=== PATIENT | male | born 1940 | race Caucasian/White ===

== ENCOUNTER → 2016-11-16 | Outpatient (CLI) | payer OTHER ==
[~2016-11-16] MED LIST: ASPI81TA28 PO; CLON0.5T3 PO; HYDR-5688 PO; LISI-461 PO; MULT-506 PO
[2016-11-16 13:51] LABS: BASO % 0.5 %; BASO ABS # 0.03 K/uL (0-0.2); COMPLETE YES; EOS % 6.2 %; HEMATOCRIT 45.5 % (42-52); IG% 0.7 %; LYMPH % 38.6 %; LYMPH ABS # 2.23 K/uL (1.2-3.4); MEAN CELL VOLUME 92.5 fL (80-100); MEAN CORPUSCULAR HEMOGLOBIN 31.3 pg (25-34); MEAN CORPUSCULAR HGB CONC 33.8 g/dl (32-36); MEAN PLATELET VOLUME 11.2 fL (7.4-10.4); MONO % 8.7 %; NEUT % 45.3 %; PLATELET COUNT 253 K/uL (130-400); RED BLOOD COUNT 4.92 M/uL (4.7-6.1); WHITE BLOOD COUNT 5.77 K/uL (4.8-10.8)
[2016-11-16 13:53] LABS: BLOOD UREA NITROGEN 17 mg/dl (7-18); BUN/CREATININE RATIO 14.3 (10-20); CARBON DIOXIDE 31 mmol/L (21-32); CHLORIDE 105 mmol/L (98-107); GLUCOSE 91 mg/dl (70-99); POTASSIUM 4.7 mmol/L (3.5-5.1); SODIUM 141 mmol/L (136-145)
[2016-11-16 14:00] LABS: CALCIUM 9.3 mg/dl (8.5-10.1)
== END | disposition home or self-care (01) ==
LOC: C.LABBC 11:00
PROVIDERS: ATTEND Surgery
DX: Z01.812 Encounter for preprocedural laboratory examination (principal); K42.9 Umbilical hernia without obstruction or gangrene

== ENCOUNTER → 2016-11-27 | Day surgery (SDC) | payer OTHER ==
[2016-11-20 11:49] VITALS: Ht 168.9 cm; Wt 68.2 kg
[~2016-11-27] VITALS: Ht 168.9 cm; Wt 68.2 kg
[~2016-11-27] MED LIST changes: +BUPIVACAINE/EPINEPHRINE 0.25% 1:200,000 30 ML VIAL ONE; +BUPIVACAINE/EPINEPHRINE 0.5% MPF 1:200,000 30 ML VIAL ONE; +CLINDAMYCIN PHOS 150 MG/ML 2 ML VIAL IV SCH; +DEXAMETHASONE SOD INJ 4 MG/ML VIAL ONE; +FENTANYL CITRATE INJ 50 MCG/1 ML 2 ML VIAL IV PRN; +FENTANYL CITRATE INJ 50 MCG/1 ML 2 ML VIAL ONE; +HYDROCODONE/ACETAMOPHEN 5/325MG TAB PO PRN; +LACTATED RINGER'S 1000ML 1,000 ML IV PRN; +LACTATED RINGER'S 1000ML 1,000 ML IV SCH; +LIDOCAINE HCL 2% 2 ML VIAL (20MG/ML) ONE; +MIDAZOLAM HCL 1 MG/ML 2ML VIAL ONE; +ONDANSETRON INJ 2 MG/ML 2 ML VIAL IV PRN; +ONDANSETRON INJ 2 MG/ML 2 ML VIAL ONE; +PROPOFOL IV EMULSION 10 MG/ML 20 ML VIAL IV ONE; +SODIUM CHLORIDE 0.9% 1000ML 1,000 ML IV SCH
--- NOTE | 2016-11-27 07:56 | History & Physical Bridge Note ---
H&P Re-Evaluation Bridge Note: I have examined the patient, reviewed the History & Physical and in the interval since the performance of the History & Physical I have noted the following changes of clinical significance: No changes noted
--- NOTE | 2016-11-27 07:58 | [facility] Operative Report ---
Operative Report Operative Date November 27, 2016. Pre-Operative Diagnosis umbilical hernia Post-Operative Diagnosis umbilical hernia with omental incarceration. Procedure(s) Performed open umbilical hernia repair Surgeon luis Industrial Education Teacher Surgeon(s) camille Zambrano Findings 1 cm umbilical hernia with fat incarceration. Anesthesia LMA Complication(s) None Disposition Recovery Room / PACU I attest to the content of the Intraoperative Record and any orders documented therein. Any exceptions are noted below.
--- NOTE | 2016-11-27 07:59 | Discharge Instructions ---
Discharge Instructions Date of Service November 27, 2016. Admission Reason for Admission: Umbilical Hernia Discharge Discharge Diagnosis / Problem: Umbilical Hernia Discharge Goals Goal(s): Decrease discomfort, Improve function Activity Recommendations Activity Limitations: as noted below Lifting Limitations: no more than 10 pounds Exercise/Sports Limitations: until after follow-up appointment May Resume Sexual Activity: after follow-up appointment Shower/Bathe: tomorrow . Instructions / Follow-Up Instructions / Follow-Up Please follow-up with Dr. Stockton in the office in 1-2 weeks. Please call the office at [phone] with any questions or concerns. Current Hospital Diet Patient's current hospital diet: Discharge Diet Recommended Diet: Regular Diet Pending Studies Studies pending at discharge: no Medical Emergencies . Who to Call and When: Medical Emergencies: If at any time you feel your situation is an emergency, please call 911 immediately. . Non-Emergent Contact Non-Emergency issues call your: Primary Care Provider, Surgeon Call Non-Emergent contact if: temperature is above 101.5, your pain is not controlled, wound has increased drainage, wound has increased redness . "Provider Documentation" section prepared by iDonne Zambrano. . VTE Core Measure Inpt VTE Proph given/why not?: SCD's [place] Drug Monitoring Program Search Results: patient reviewed within database, no issues identified
--- NOTE | 2016-11-27 08:58 | OPERATIVE REPORT ---
DATE OF OPERATION: 11/27/2016 PREOPERATIVE DIAGNOSIS: Umbilical hernia. POSTOPERATIVE DIAGNOSIS: One centimeter umbilical hernia with incarcerated fat. PROCEDURE: Open umbilical hernia repair. SURGEON: Dr. Stockton. MERCHANDISE WORKER: Dionne Zambrano PA-C. ESTIMATED BLOOD LOSS: Approximately 5 mL. COMPLICATIONS: No immediate. ANESTHESIA: Laryngeal mask airway. OPERATIVE NOTE: After informed consent was obtained, the patient taken to the operating suite, placed in supine position. After successful placement of laryngeal mask airway the abdomen was shaved and sterilely prepped and draped in usual fashion. An infraumbilical incision with a 15 blade scalpel was made and electrocautery used to carry this down through the soft tissue. We then took a Cece clamp and came around above the umbilicus. Electrocautery was then used to detach the umbilicus from underlying fascia. This left incarcerated fat within the hernia. There was a hard infarcted piece of fat which we were able to use electrocautery to excise. Once we took this down we were then able to dunk the rest of the omental fat back down into the abdominal cavity leaving skeletonized fascial edges. It was only about a cm and thus I opted not to use mesh. I used 0 Ethibond in an interrupted fashion to primarily close the defect. Thorough irrigation was then performed. The umbilical stalk was reattached to the fascia using 0 Vicryl. Soft tissue was closed using 3-0 Vicryl and skin closed using 4-0 Monocryl. Marcaine was injected around the area for postoperative analgesia and skin glue used as a dressing. The patient was awakened, extubated, and transferred to recovery in stable condition. I attest to the content of the Intraoperative Record and any orders documented therein. Any exceptio ns are noted below.
--- NOTE | 2016-11-27 09:36 | Anesthesia Progress Nt - [facility] ---
Anesthesia Post Op Note Date & Time November 27, 2016 at 09:35 Vital Signs Pain Intensity: 3 Vital Signs Past 12 Hours Date Time Temp Pulse Resp B/P Pulse Ox O2 Delivery O2 Flow Rate FiO2 11/27/16 09:25 36.4 63 11 11/27/16 09:25 63 11 142/74 94 11/27/16 09:20 64 15 11/27/16 09:20 63 15 124/78 95 11/27/16 09:20 95 Room Air 11/27/16 09:15 62 0 11/27/16 09:15 62 0 134/77 98 11/27/16 09:10 66 16 125/78 97 11/27/16 09:10 65 16 11/27/16 09:05 67 18 11/27/16 09:05 68 18 122/79 97 11/27/16 09:00 16 11/27/16 09:00 73 16 140/79 11/27/16 08:55 65 15 11/27/16 08:55 65 15 126/65 97 11/27/16 08:54 123/67 11/27/16 08:51 36.1 61 16 125/67 96 Diffusion Mask 6 11/27/16 07:09 36.5 66 18 151/75 95 Room Air Notes Mental Status: alert / awake / arousable, participated in evaluation Pt Amnestic to Procedure: Yes Nausea / Vomiting: adequately controlled Pain: adequately controlled Airway Patency, RR, SpO2: stable & adequate BP & HR: stable & adequate Hydration State: stable & adequate Anesthetic Complications: no major complications apparent Pt doing well.
[2016-11-27 10:23] VITALS: BP 145/80; PULSE 65; TEMP 36.5; O2SAT 97
== END | disposition home or self-care (01) ==
LOC: X.SURG 06:28
PROVIDERS: ATTEND Surgery
DX: K42.0 Umbilical hernia with obstruction, without gangrene (principal); I10 Essential (primary) hypertension; F41.9 Anxiety disorder, unspecified; Z98.42 Cataract extraction status, left eye; Z88.0 Allergy status to penicillin; Z98.41 Cataract extraction status, right eye; Z98.890 Other specified postprocedural states; Z79.82 Long term (current) use of aspirin

== ENCOUNTER → 2017-06-28 | Day surgery (SDC) | payer OTHER ==
[2017-06-11 09:27] VITALS: Ht 170.2 cm; Wt 66.4 kg
[~2017-06-28] VITALS: Ht 170.2 cm; Wt 66.4 kg
[~2017-06-28] MED LIST changes: -BUPIVACAINE/EPINEPHRINE 0.25% 1:200,000 30 ML VIAL ONE; -BUPIVACAINE/EPINEPHRINE 0.5% MPF 1:200,000 30 ML VIAL ONE; -CLINDAMYCIN PHOS 150 MG/ML 2 ML VIAL IV SCH; -FENTANYL CITRATE INJ 50 MCG/1 ML 2 ML VIAL IV PRN; -FENTANYL CITRATE INJ 50 MCG/1 ML 2 ML VIAL ONE; -HYDR-5688 PO; -HYDROCODONE/ACETAMOPHEN 5/325MG TAB PO PRN; -LACTATED RINGER'S 1000ML 1,000 ML IV PRN; -LACTATED RINGER'S 1000ML 1,000 ML IV SCH; +LIDOCAINE HCL 1% MPF 5 ML VIAL ONE; -LIDOCAINE HCL 2% 2 ML VIAL (20MG/ML) ONE; -MIDAZOLAM HCL 1 MG/ML 2ML VIAL ONE; -ONDANSETRON INJ 2 MG/ML 2 ML VIAL IV PRN; -ONDANSETRON INJ 2 MG/ML 2 ML VIAL ONE; -PROPOFOL IV EMULSION 10 MG/ML 20 ML VIAL IV ONE; -SODIUM CHLORIDE 0.9% 1000ML 1,000 ML IV SCH
[2017-06-28 07:29] VITALS: TEMP 36.5
--- NOTE | 2017-06-28 07:31 | [facility] Operative Report ---
Operative Report Operative Date Jun 28, 2017. Pre-Operative Diagnosis Spinal Stenosis Post-Operative Diagnosis same Procedure(s) Performed L4-5 Epidural [address] Injection Sur[address] Eng Durable Medical Equipment Technician Surgeon(s) none Estimated Blood Loss 0 ml Findings stenosis Specimens none Complication(s) None Disposition Recovery Room / PACU I attest to the content of the Intraoperative Record and any orders documented therein. Any exceptions are noted below.
--- NOTE | 2017-06-28 07:33 | Discharge Instructions-[facility]urgCtr ---
Discharge Instructions Date of Service Jun 28, 2017. Visit Reason for Visit: Spinal Stenosis Discharge Discharge Diagnosis / Problem: same Discharge Goals Goal(s): Improve function Activity Recommendations Activity Limitations: resume your previous activity Lifting Limitations: gradually increase as tolerated Shower/Bathe: no limitations Driving or Machine Use: no limitations Anesthesia . Post Anesthesia Instructions: If you have had General Anesthesia or IV Sedation: * Do not drive today. * Resume driving when surgeon permits. * Do not make important decisions or sign legal documents today. * Call surgeon for: 1. Temperature elevations greater than 101 degrees F. 2. Uncontrollable pain. 3. Excessive bleeding. 4. Persistent nausea and vomiting. 5. Medication intolerance (nausea, vomiting or rash). * For nausea and vomiting use only clear liquids such as: tea, soda, bouillon until nausea subsides, then gradually increase diet as tolerated. * If you have any concerns or questions, call your surgeon's office. If physician is unavailable and it is an emergency, call 911 or go to the nearest emergency room. . Diet Recommendations Home Diet: no limitations Procedures Procedures Performed: L4-5 Epidural Steroid Injection Pending Studies Studies pending at discharge: no Medical Emergencies . Who to Call and When: Medical Emergencies: If at any time you feel your situation is an emergency, please call 911 immediately. . Non-Emergent Contact Non-Emergency issues call your: Surgeon . . "Provider Documentation" section prepared by Vance Eng. .
[2017-06-28 07:44] VITALS: BP 166/81; PULSE 64; O2SAT 96
--- NOTE | 2017-06-28 08:44 | OPERATIVE REPORT ---
DATE OF OPERATION: 06/28/2017 PREOPERATIVE DIAGNOSIS: Stenosis, lumbar. POSTOPERATIVE DIAGNOSIS: Stenosis, lumbar. PROCEDURE PERFORMED: Include epidural steroid injection, 4-5 lumbar. SURGEON: Vance Eng DO. DESCRIPTION OF PROCEDURE: The patient was taken to the minor procedure room and placed prone, prepped and draped sterile. A 22-gauge spinal Tuohy needle advanced to the epidural space at L4-L5. A 2 mL of dexamethasone injected without incident. I used an air acceptance technique. No complications. Discharge home stable. I attest to the content of the Intraoperative Record and any orders documented therein. Any exception s are noted below.
== END | disposition home or self-care (01) ==
LOC: X.SURG 06:26
PROVIDERS: ATTEND Orthopaedic Surgery Orthopaedic Surgery of the Spine
DX: M48.061 Spinal stenosis, lumbar region without neurogenic claudication (principal); I10 Essential (primary) hypertension; F41.9 Anxiety disorder, unspecified; Z79.82 Long term (current) use of aspirin; Z79.899 Other long term (current) drug therapy

== ENCOUNTER → 2017-07-23 | Outpatient (CLI) | payer OTHER ==
[~2017-07-23] MED LIST changes: -CLON0.5T3 PO; -DEXAMETHASONE SOD INJ 4 MG/ML VIAL ONE; +KLN/5 PO; -LIDOCAINE HCL 1% MPF 5 ML VIAL ONE
[2017-07-23 11:20] LABS: BLOOD UREA NITROGEN 13 mg/dl (7-18); CALCIUM 8.9 mg/dl (8.5-10.1); CARBON DIOXIDE 33 mmol/L (21-32); CREATININE 1.27 mg/dl (0.60-1.40); GLUCOSE 95 mg/dl (70-99); SODIUM 140 mmol/L (136-145)
[2017-07-23 11:24] LABS: CHOLESTEROL 168 mg/dl (0-200); LDL CHOLESTEROL CALCULATED 86 mg/dl
== END | disposition home or self-care (01) ==
LOC: C.LABBC 09:07
PROVIDERS: ATTEND Family Medicine
DX: I10 Essential (primary) hypertension (principal)

== ENCOUNTER 2020-10-14 21:42 | Observation (INO) ==
--- NOTE | 2020-10-14 22:05 | Emergency Department Note ---
History of Present Illness General Chief complaint: Shoulder Pain Stated complaint: CHEST PAIN Time Seen by Provider: 10/14/20 21:49 Source: patient and family ( who is at the bedside) Mode of arrival: ambulatory Limitations: no limitations History of Present Illness Maximum Pain Intensity: 7 This patient comes in after having pain just medial to his left shoulder blade. He was at a computer and a sudden sharp pain he called 911 and when they arrived he declined transport he said that they most likely felt it was musculoskeletal as it hurts when he moves and he has no other symptoms but they recommended he come here so he came in by private vehicle. He did take a baby aspirin this evening. 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 He has had no chest pain or shortness of breath. Was mildly pleuritic initially. No nausea or vomiting or numbness or weakness. no lightheadedness or dizziness. no diaphoresis. No blood or melena in his stool. no abdominal pain. Home Medications Medication Instructions Recorded Confirmed Type aspirin 81 mg tablet 81 mg PO DAILY #1 tab 03/17/19 10/14/20 History hydroxyzine pamoate 25 mg capsule 25 mg PO TID PRN cap 03/17/19 10/14/20 History loratadine 10 mg capsule 10 mg PO DAILY cap 03/17/19 10/14/20 History multivitamin 1 tab PO DAILY 03/19/19 10/14/20 History lisinopril 10 mg tablet 10 mg PO DAILY #90 tab 06/10/20 10/14/20 Rx clonazepam 0.5 mg PO HS 10/14/20 10/14/20 History Allergies Allergy/AdvReac Type Severity Reaction Status Date / Time Penicillins Allergy Intermediate BODY RASH Verified 10/14/20 23:02 Past Med/Surg History Medical History Psychological disorder Surgical History History of cataract surgery History of repair of rotator cuff History of umbilical hernia repair Family History Father Cardiac disorder Myocardial infarction Hypertension Heart disease Grandmother (Paternal) No problems noted. Mother Emphysema/COPD Daughter Asthma Denies family history of Ovarian cancer Prostate cancer Breast cancer Colorectal cancer Social History Smoking Status: Never smoker Second Hand Exposure: Yes; Hx Alcohol Use: No Hx Substance Use: No Preferred Language: Hebrew Communication Ability: Effective Visual Impairment: No Limitations Hearing Ability: Normal marital status: Current Living Situation: Spouse current occupational status: retired current occupation: [place] [employer] Feels Safe at Home: Yes Childhood Exposure to Second-Hand Smoke: Yes Dental Care, Regularly: Yes Physical Activity Frequency: Other Physical Activity Frequency Comment: infrequent exercise Seatbelt Use: always Sunscreen Use: No Do you think of yourself as: straight/heterosexual Immunizations: PAst Medical historyhypertension stable on lisinopril. He does take clonazepam for anxiety and has not been feeling anxious lately that was related to his previous job and has been retired for 16 years now. Denies diabetes or hypercholesteremia he did have a stress test in the past but it has been many years Family historyFather had MS at age 75 Social history- He is and lives locally with his Review of Systems A total of 10 systems reviewed and were otherwise negative Physical Exam Vital Signs Vital Signs - 24 hr 10/14/20 21:45 10/14/20 22:18 10/14/20 22:21 Temperature 36.5 C Temperature Source Temporal Artery Scan Pulse Rate 72 83 Pulse Rate from SpO2 Sensor Pulse Rhythm Regular Pulse Strength Normal Respiratory Rate 16 22 Respiratory Effort / Characteristics Non-Labored Respiratory Depth Normal Respiratory Pattern Regular Blood Pressure 193/80 H 153/77 H Blood Pressure Mean 117 102 Blood Pressure Position Sitting Pulse Oximetry 98 94 100 Oxygen Delivery Method Room Air Room Air Sepsis Recent Fever Within 48 Hours No Sepsis New/Unexplained Change in Mental Status N/A Sepsis Action Taken by Nursing No Action Required 10/14/20 22:31 10/14/20 23:00 10/14/20 23:30 Temperature Temperature Source Pulse Rate 77 71 72 Pulse Rate from SpO2 Sensor 63 71 72 Pulse Rhythm Pulse Strength Respiratory Rate 19 13 17 Respiratory Effort / Characteristics Respiratory Depth Respiratory Pattern Blood Pressure 126/62 137/74 174/85 H Blood Pressure Mean 83 95 114 Blood Pressure Position Pulse Oximetry 94 93 95 Oxygen Delivery Method Room Air Room Air Room Air Sepsis Recent Fever Within 48 Hours Sepsis New/Unexplained Change in Mental Status Sepsis Action Taken by Nursing General: Well developed well nourished in no acute distress, breathing comfortably on room air. Normal speech HEENT: Normal cephalic atraumatic. Pupils are equal round and reactive to light. Extraocular movements are intact. Oropharynx is pink with moist mucous membranes. No swelling of the mouth lips or tongue. Neck: Supple with a midline trachea. No meningeal signs or stiffness, no JVD or bruits. No Stridor. Chest: Clear to auscultation bilaterally. No wheezes or rhonchi. No increased work of breathing. Heart: Regular rate and rhythm without murmurs or gallops. Abdomen: Soft nontender, nondistended without rebound guarding or rigidity. Extremities: No cyanosis clubbing or edema. No calf tenderness or assymetry Spine/Back. Non tender to palpation. No CVA tenderness Skin: Good turgor without rashes. Neurologic exam: Cranial nerves two through 12 are intact. Motor and sensation are intact and symmetrical throughout. Course Administered Medications Discontinued Medications Aspirin (Aspirin 81 Mg Chew) 324 mg PO NOW STA Stop: 10/14/20 23:24 Last Admin: 10/14/20 23:36 Dose: 324 mg Documented by: [id number] Medical Decision Making Differential Diagnosis Musculoskeletal, coronary artery disease, electrolyte or metabolic abnormality, PE, pneumothorax, aortic disease Medical Records Attestation: I reviewed the patient's medical records. Home Medications Current Medication List: was personally reviewed by me Laboratory Data Attestation: I reviewed the patient's lab results. Result diagrams: 10/14/20 22:20 10/14/20 22:20 Lab Results 10/14/20 10/14/20 10/14/20 Range/Units 22:20 22:20 22:20 WBC 7.94 (4.8-10.8) K/uL RBC 4.73 (4.7-6.1) M/uL Hgb 14.8 (14.0-18.0) g/dL Hct 43.3 (42-52) % MCV 91.5 (80-100) fL MCH 31.3 (25-34) pg MCHC 34.2 (32-36) g/dL RDW Std Deviation 41.7 (36.4-46.3) fL RDW Coeff of Shima 12.4 (11.5-14.5) % Plt Count 248 (130-400) K/uL MPV 11.1 H (7.4-10.4) fL Immature Gran % (Auto) 0.5 % Neut % (Auto) 57.1 % Lymph % (Auto) 29.3 % [place] % (Auto) 8.7 % Eos % (Auto) 4.0 % Baso % (Auto) 0.4 % Neut # (Auto) 4.53 (1.4-6.5) K/uL Lymph # (Auto) 2.33 (1.2-3.4) K/uL [place] # (Auto) 0.69 H (0.11-0.59) K/uL Eos # (Auto) 0.32 (0-0.5) K/uL Baso # (Auto) 0.03 (0-0.2) K/uL Immature Gran # (Auto) 0.04 H (0.00-0.02) K/uL D-Dimer 350 (0-500) ug/L FEU Sodium 138 (136-145) mmol/L Potassium 3.9 (3.5-5.1) mmol/L Chloride 105 (98-107) mmol/L Carbon Dioxide 30 (21-32) mmol/L Anion Gap 3.0 (3-11) BUN 20 H (7-18) mg/dl Creatinine 1.37 (0.6-1.4) mg/dl Est Cr Clr Drug Dosing 38.7 ml/min Est GFR ( Amer) 56.9 Est GFR (Non-Af Amer) 49.1 BUN/Creatinine Ratio 14.7 (10-20) Glucose 120 H (70-99) mg/dl Calcium 9.2 (8.5-10.1) mg/dl Total Bilirubin 0.2 (0.2-1) mg/dl AST 21 (15-37) U/L ALT 26 (12-78) U/L Alkaline Phosphatase 57 (45-117) U/L Troponin I < 0.015 (0-0.045) ng/ml Total Protein 7.3 (6.4-8.2) gm/dl Albumin 3.6 (3.4-5.0) gm/dl Globulin 3.7 (2.5-4.0) gm/dl Albumin/Globulin Ratio 1.0 (0.9-2) Lipase 241 (73-393) U/L COVID-19 Eval Order 10/14/20 Range/Units 23:32 WBC (4.8-10.8) K/uL RBC (4.7-6.1) M/uL Hgb (14.0-18.0) g/dL Hct (42-52) % MCV (80-100) fL MCH (25-34) pg MCHC (32-36) g/dL RDW Std Deviation (36.4-46.3) fL RDW Coeff of Shima (11.5-14.5) % Plt Count (130-400) K/uL MPV (7.4-10.4) fL Immature Gran % (Auto) % Neut % (Auto) % Lymph % (Auto) % [place] % (Auto) % Eos % (Auto) % Baso % (Auto) % Neut # (Auto) (1.4-6.5) K/uL Lymph # (Auto) (1.2-3.4) K/uL [place] # (Auto) (0.11-0.59) K/uL Eos # (Auto) (0-0.5) K/uL Baso # (Auto) (0-0.2) K/uL Immature Gran # (Auto) (0.00-0.02) K/uL D-Dimer (0-500) ug/L FEU Sodium (136-145) mmol/L Potassium (3.5-5.1) mmol/L Chloride (98-107) mmol/L Carbon Dioxide (21-32) mmol/L Anion Gap (3-11) BUN (7-18) mg/dl Creatinine (0.6-1.4) mg/dl Est Cr Clr Drug Dosing ml/min Est GFR ( Amer) Est GFR (Non-Af Amer) BUN/Creatinine Ratio (10-20) Glucose (70-99) mg/dl Calcium (8.5-10.1) mg/dl Total Bilirubin (0.2-1) mg/dl AST (15-37) U/L ALT (12-78) U/L Alkaline Phosphatase (45-117) U/L Troponin I (0-0.045) ng/ml Total Protein (6.4-8.2) gm/dl Albumin (3.4-5.0) gm/dl Globulin (2.5-4.0) gm/dl Albumin/Globulin Ratio (0.9-2) Lipase (73-393) U/L COVID-19 Eval Order [facility]FluRsv at [facility] Imaging Data Attestation: I personally reviewed and interpreted this imaging study as follows: My Impression: Chest x-rayno acute infiltrate, failure, pneumothorax seen Radiologist's Impression: XR chest 1V portable HISTORY: 80 years-old Male Chest Pain . Atypical chest pain COMPARISON: Chest radiograph 10/25/2014 TECHNIQUE: Portable AP view of the chest FINDINGS: Cardiomediastinal and hilar silhouettes are within normal limits. No pneumothorax, pleural effusion, airspace consolidation or overt pulmonary edema. Bones of the chest appear grossly intact. IMPRESSION: No acute process. ECG Data Attestation: I personally reviewed and interpreted this ECG as follows: Indication: + back/shoulder pain Rate (beats per minute): 74 Rhythm: + normal sinus ECG Intervals/blocks: + Normal QRS, + Normal QT and + Normal [place] ECG [place]: + Normal ECG ST segments: + Normal ST segments ECG Findings: + PVCs (Occasional) Comparison ECG Date: from (07/30/14) Change: the following changes noted (PVC occasionally is now present) Additional Comments: EKG #2- Normal sinus rhytym at 72 without ischemic changes. No change compared to EKG#1. MDM Narrative This patient comes in as described above he had shoulder pain with reproducible along the scapula. There is no rash or nothing to suggest shingles. He is 80 and thus I did a full cardiac work-up including chest x-ray, EKG, troponin, and D-dimer. He was reassessed frequently. EKG does not suggest acute coronary syndrome or arrhythmia. Troponin is negative. Chest x-ray is unremarkable, there is nothing to suggest congestive heart failure, pneumonia or pneumothorax. D-dimer is negative and a low pretest probability makes PE highly unlikely. Initial EKG shows no ischemic changes. EKG #2 shows no change compared EKG #1. Troponin is negative. There is no acute electrolyte or metabolic abnormalities. Although his symptoms are somewhat atypical,he does have cardiac risk factors, namely age family history and hypertension. I did discuss case with Dr. Godoy who will observe him for further cardiac evaluation. Continuous cardiac monitoring: Order was placed in the EMR for continuous cardiac monitoring and shows a normal sinus rhythm with a pulse of 70 Impression & Plan Chest pain, Acute shoulder pain, Anxiety, HTN (hypertension), FH: CAD (coronary artery disease) Discharge Plan Visit Data Chief Complaint: Shoulder Pain Stated Complaint: CHEST PAIN ED Provider: Donato Turcios Discharge Problem: Chest pain, Acute shoulder pain, Anxiety, HTN (hypertension), FH: CAD (coronary artery disease) Forms Stand Alone Forms: [employer] Prescriptions Prescriptions: No Action lisinopril 10 mg tablet 10 mg PO DAILY Qty: 90 RF: 1 aspirin 81 mg tablet 81 mg PO DAILY Qty: 1 RF: 0 loratadine 10 mg capsule 10 mg PO DAILY RF: 0 hydroxyzine pamoate 25 mg capsule 25 mg PO TID PRN (Reason: anxiety) RF: 0 multivitamin [Daily Multi-Vitamin] tablet 1 tab PO DAILY RF: 0 clonazepam 0.5 mg tablet 0.5 mg PO HS RF: 0 Discharge Problem: Chest pain Qualifiers: Chest pain type: other chest pain Qualified Code(s): R07.89 - Other chest pain Acute shoulder pain Qualifiers: Laterality: left Qualified Code(s): M25.512 - Pain in left shoulder HTN (hypertension) Qualifiers: Hypertension type: unspecified Qualified Code(s): I10 - Essential (primary) hypertension
[2020-10-14 22:27] LABS: Basophils # (auto) 0.03 K/uL (0-0.2); Basophils % (auto) 0.4 %; Eosinophils # (auto) 0.32 K/uL (0-0.5); Hematocrit (blood only) 43.3 % (42-52); Hemoglobin 14.8 g/dL (14.0-18.0); Immature Granulocytes # (auto) 0.04 K/uL (0.00-0.02); Immature Granulocytes % (auto) 0.5 %; Lymphocytes # (auto) 2.33 K/uL (1.2-3.4); Lymphocytes % (auto) 29.3 %; Mean Corpuscular Hemoglobin 31.3 pg (25-34); Mean Corpuscular Hgb Conc 34.2 g/dL (32-36); Mean Corpuscular Volume 91.5 fL (80-100); Mean Platelet Volume 11.1 fL (7.4-10.4); Monocytes # (auto) 0.69 K/uL (0.11-0.59); Monocytes % (auto) 8.7 %; Neutrophils # (auto) 4.53 K/uL (1.4-6.5); Neutrophils % (auto) 57.1 %; Platelet Count 248 K/uL (130-400); RDW Coefficient of Variation 12.4 % (11.5-14.5); RDW Standard Deviation 41.7 fL (36.4-46.3); Red Blood Count 4.73 M/uL (4.7-6.1); White Blood Count 7.94 K/uL (4.8-10.8)
[2020-10-14 22:43] LABS: Alanine Aminotransferase 26 U/L (12-78); Albumin Level 3.6 gm/dl (3.4-5.0); Aspartate Aminotransferase 21 U/L (15-37); BUN Creatinine Ratio 14.7 (10-20); Blood Urea Nitrogen 20 mg/dl (7-18); Calcium 9.2 mg/dl (8.5-10.1); Carbon Dioxide 30 mmol/L (21-32); Chloride 105 mmol/L (98-107); Creatinine Clr Calc Pharmacy 38.7 ml/min; Est GFR (African American) 56.9; Est GFR (Non-African American) 49.1; Glucose 120 mg/dl (70-99); Lipase 241 U/L (73-393); Potassium 3.9 mmol/L (3.5-5.1); Sodium 138 mmol/L (136-145)
--- NOTE | 2020-10-14 22:43 | XRay Report ---
XR chest 1V portable HISTORY: 80 years-old Male Chest Pain . Atypical chest pain COMPARISON: Chest radiograph 10/25/2014 TECHNIQUE: Portable AP view of the chest FINDINGS: Cardiomediastinal and hilar silhouettes are within normal limits. No pneumothorax, pleural effusion, airspace consolidation or overt pulmonary edema. Bones of the chest appear grossly intact. IMPRESSION: No acute process. ACT 112: Negative or not required by law. The above report was generated using voice recognition software. It may contain grammatical, syntax o r spelling errors. Electronically signed by: Will Steele M.D. 10/14/2020 10:41 PM
[2020-10-14 22:45] LABS: D Dimer 350 ug/L FEU (0-500)
[2020-10-14 22:48] LABS: Alkaline Phosphatase 57 U/L (45-117); Bilirubin,Total 0.2 mg/dl (0.2-1); Globulin 3.7 gm/dl (2.5-4.0); Total Protein 7.3 gm/dl (6.4-8.2); Troponin I < 0.015 ng/ml (0-0.045)
[2020-10-14] MEDS ORDERED: ASPIRIN 81 MG CHEW PO STA (23:23)
[2020-10-15 00:17] LABS: Influenza A virus by PCR Negative (Neg); Influenza B virus by PCR Negative (Neg); RSV by PCR Negative (Neg); SARS CoV2 RNA(COVID-19) InHosp NEGATIVE (Negative)
[2020-10-15] MEDS ORDERED: hydrOXYzine HCl 25 MG TAB PO PRN (02:01)
[2020-10-15] MEDS ORDERED: NITROGLYCERIN SL 0.4 MG/TAB TAB SL PRN (02:01)
[2020-10-15] MEDS ORDERED: ACETAMINOPHEN 325 MG TAB PO PRN (02:01)
[2020-10-15] MEDS ORDERED: ONDANSETRON INJ 2 MG/ML 2 ML VIAL IV PRN (02:01)
--- NOTE | 2020-10-15 04:02 | History & Physical Report ---
Date of Service October 15, 2020 Assessment & Plan (1) Acute shoulder pain: Acute left medial scapular pain- Family history of his father with CAD and an AK, but did have tobacco use. The patient will be admitted to telemetry for serial cardiac enzymes, serial EKG's, cardiac rhythm monitoring and a 2-D echocardiogram with Dopplers. Continue lisinopril 10 mg daily and aspirin 81 mg daily. Patient did receive an additional 3 to 24 mg aspirin from the ED Present on Admission?: Yes (2) Anxiety: Anxiety/insomnia- Continue clonazepam 0.5 mg p.o. at bedtime. Continue hydroxyzine 25 mg p.o. 3 times daily as needed anxiety Present on Admission?: Yes (3) HTN (hypertension): Continue lisinopril and aspirin as noted above Present on Admission?: Yes (4) Allergic rhinitis: Continue loratadine 10 mg p.o. daily Present on Admission?: Yes (5) FH: CAD (coronary artery disease): See above Present on Admission?: Yes Admission and Anticipated Discharge Date Admission Date: October 15, 2020 History of Present Illness Chief Complaint: The patient presents to the emergency department with complaint of the acute onset of left medial scapular pain that occurred while sitting at his computer, and was twisting at the waist level from side to side while working Primary Care Provider: Robina Khan MD The patient is a 80-year-old male with a past medical history including hypertension, family history of CAD, adhesive capsulitis of shoulder, lumbar spondylolisthesis, allergic rhinitis, 60% left ICA stenosis, Dupuytren's contracture, anxiety and PVCs. He presents with symptoms as noted above. Symptoms at this time in the emergency department are primarily brought on by twisting motion. He has not had any symptoms in the past. He denies any leg cramping recent travels. He denies any recent illnesses or exposures. Allergies Allergy/AdvReac Type Severity Reaction Status Date / Time Penicillins Allergy Intermediate BODY RASH Verified 10/14/20 23:02 Home Medications Medication Instructions Recorded Confirmed Type aspirin 81 mg tablet 81 mg PO DAILY #1 tab 03/17/19 10/14/20 History hydroxyzine pamoate 25 mg capsule 25 mg PO TID PRN cap 03/17/19 10/14/20 History loratadine 10 mg capsule 10 mg PO DAILY cap 03/17/19 10/14/20 History multivitamin 1 tab PO DAILY 03/19/19 10/14/20 History lisinopril 10 mg tablet 10 mg PO DAILY #90 tab 06/10/20 10/14/20 Rx clonazepam 0.5 mg PO HS 10/14/20 10/14/20 History Past Med/Surg History Medical History Psychological disorder Surgical History History of cataract surgery History of repair of rotator cuff History of umbilical hernia repair Family History Father Cardiac disorder Myocardial infarction Hypertension Heart disease Grandmother (Paternal) No problems noted. 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 Feels Safe at Home: Yes Safety Concerns: Feels Safe At This Time Childhood Exposure to Second-Hand Smoke: Yes Dental Care, Regularly: Yes Physical Activity Frequency: Other Physical Activity Frequency Comment: infrequent exercise Seatbelt Use: always Sunscreen Use: No Do you think of yourself as: straight/heterosexual Assistive Devices: None Review of Systems Review of Systems: The patient denies chest pain, palpitations, shortness of breath, dyspnea on exertion, cough, lower extremity swelling, sore throat, fevers, chills, sweats, weight change, fatigue, nausea, vomiting, diarrhea , constipation, abdominal pain, pelvic pain, blood in urine or stool, dysuria, urinary frequency or urgency, lightheadedness, dizziness, headache, memory loss, loss of consciousness, rash, abnormal bruising or bleeding, imbalance, focal or generalized weakness, numbness or tingling in arms or legs, generalized arthralgias or myalgias, neck pain, or night sweats. The review of systems is otherwise negative other than for that already noted above, and at least 10 systems have been reviewed. Physical Exam Physical Exam: The patient is awake, alert and oriented 3, well developed and well nourished, normocephalic and atraumatic, lying in bed and in no acute distress. HEENT--PERRL, EOMI, mucous membranes and oropharynx normal. Neck--supple. No JVD. No bruits. Thyroid normal, trachea midline, no adenopathy. Heart--normal S1 and S2. No murmurs, rubs or gallops. Lungs--clear bilaterally, no respiratory distress, no accessory muscle use. Abdomen--normal bowel sounds and soft. Nontender. Nondistended, no hernias or masses, no organomegaly. Extremities--no cyanosis or clubbing. No edema. Dermatologic--normal skin turgor, normal color, no abnormal lymph nodes, no rash. Neurologic--cranial nerves II through XII grossly intact. Rheumatologic--normal range of motion. Psychiatric--normal affect. Results & Data Results & Data ([facility]) Vital Signs (Past 12 Hours) Vital Signs Temp Pulse Pulse Resp BP BP Pulse Ox 10/15/20 02:15 98.1 F 72 18 186/84 H 91 10/15/20 02:01 10/15/20 01:35 70 19 156/81 H 93 10/15/20 01:00 70 13 144/82 H 93 10/15/20 00:30 81 14 139/83 94 10/15/20 00:00 70 22 133/82 95 10/14/20 23:30 72 17 174/85 H 95 10/14/20 23:00 71 13 137/74 93 10/14/20 22:31 77 19 126/62 94 10/14/20 22:21 100 10/14/20 22:18 83 22 153/77 H 94 10/14/20 21:45 97.7 F 72 16 193/80 H 98 Pulse Ox 10/15/20 02:15 10/15/20 02:01 96 10/15/20 01:35 10/15/20 01:00 10/15/20 00:30 10/15/20 00:00 10/14/20 23:30 10/14/20 23:00 10/14/20 22:31 10/14/20 22:21 10/14/20 22:18 10/14/20 21:45 Laboratory Results Laboratory Results WBC 7.94 K/uL (4.8-10.8) 10/14/20 22:20 RBC 4.73 M/uL (4.7-6.1) 10/14/20 22:20 Hgb 14.8 g/dL (14.0-18.0) 10/14/20 22:20 Hct 43.3 % (42-52) 10/14/20 22:20 MCV 91.5 fL (80-100) 10/14/20 22:20 MCH 31.3 pg (25-34) 10/14/20 22:20 MCHC 34.2 g/dL (32-36) 10/14/20 22:20 RDW Std Deviation 41.7 fL (36.4-46.3) 10/14/20 22:20 RDW Coeff of Shima 12.4 % (11.5-14.5) 10/14/20 22:20 Plt Count 248 K/uL (130-400) 10/14/20 22:20 MPV 11.1 fL (7.4-10.4) H 10/14/20 22:20 Immature Gran % (Auto) 0.5 % 10/14/20 22:20 Neut % (Auto) 57.1 % 10/14/20 22:20 Lymph % (Auto) 29.3 % 10/14/20 22:20 [place] % (Auto) 8.7 % 10/14/20 22:20 Eos % (Auto) 4.0 % 10/14/20 22:20 Baso % (Auto) 0.4 % 10/14/20 22:20 Neut # (Auto) 4.53 K/uL (1.4-6.5) 10/14/20 22:20 Lymph # (Auto) 2.33 K/uL (1.2-3.4) 10/14/20 22:20 [place] # (Auto) 0.69 K/uL (0.11-0.59) H 10/14/20 22:20 Eos # (Auto) 0.32 K/uL (0-0.5) 10/14/20 22:20 Baso # (Auto) 0.03 K/uL (0-0.2) 10/14/20 22:20 Immature Gran # (Auto) 0.04 K/uL (0.00-0.02) H 10/14/20 22:20 D-Dimer 350 ug/L FEU (0-500) 10/14/20 22:20 Sodium 138 mmol/L (136-145) 10/14/20 22:20 Potassium 3.9 mmol/L (3.5-5.1) 10/14/20 22:20 Chloride 105 mmol/L (98-107) 10/14/20 22:20 Carbon Dioxide 30 mmol/L (21-32) 10/14/20 22:20 Anion Gap 3.0 (3-11) 10/14/20 22:20 BUN 20 mg/dl (7-18) H 10/14/20 22:20 Creatinine 1.37 mg/dl (0.6-1.4) 10/14/20 22:20 Est Cr Clr Drug Dosing 38.7 ml/min 10/14/20 22:20 Est GFR ( Amer) 56.9 10/14/20 22:20 Est GFR (Non-Af Amer) 49.1 10/14/20 22:20 BUN/Creatinine Ratio 14.7 (10-20) 10/14/20 22:20 Glucose 120 mg/dl (70-99) H 10/14/20 22:20 Calcium 9.2 mg/dl (8.5-10.1) 10/14/20 22:20 Total Bilirubin 0.2 mg/dl (0.2-1) 10/14/20 22:20 AST 21 U/L (15-37) 10/14/20 22:20 ALT 26 U/L (12-78) 10/14/20 22:20 Alkaline Phosphatase 57 U/L (45-117) 10/14/20 22:20 Troponin I < 0.015 ng/ml (0-0.045) 10/14/20 22:20 Total Protein 7.3 gm/dl (6.4-8.2) 10/14/20 22:20 Albumin 3.6 gm/dl (3.4-5.0) 10/14/20 22:20 Globulin 3.7 gm/dl (2.5-4.0) 03/26/21 22:20 Albumin/Globulin Ratio 1.0 (0.9-2) 10/14/20 22:20 Lipase 241 U/L (73-393) 10/14/20 22:20 COVID-19 Eval Order [facility]FluRsv at [facility] 10/14/20 23:32 SARS-CoV-2 (PCR) NEGATIVE (Negative) 10/14/20 23:32 Influenza Type A (PCR) Negative (Neg) 10/14/20 23:32 Influenza Type B (PCR) Negative (Neg) 10/14/20 23:32 RSV (RT-PCR) Negative (Neg) 10/14/20 23:32 Diagnostic Findings [facility], [id number] XRay Report Patient: RICK SOLORZANO Date: 10/14/20MR#: [id number]: [address] [place], [place] [address]t ID:[id number]: Date: 1940[facility] Zip: [place], [place] [address]Cyp: 80Location: EDSex: MRoom/Bed:Att Phy:Diagnosis: CHEST PAINPri Phy: Robina Khan, MDService Date: 10/14/20Fam Phy:Interpreting Phy: Simone SteeleAdmit Phy: Ordering Phy: Donato Turcios M.D. cc: ~ XR chest 1V portable HISTORY: 80 years-old Male Chest Pain . Atypical chest pain COMPARISON: Chest radiograph 10/25/2014 TECHNIQUE: Portable AP view of the chest FINDINGS: Cardiomediastinal and hilar silhouettes are within normal limits. No pneumothorax, pleural effusion, airspace consolidation or overt pulmonary edema. Bones of the chest appear grossly intact. IMPRESSION: No acute process. ACT 112: Negative or not required by law. The above report was generated using voice recognition software. It may contain grammatical, syntax or spelling errors. Electronically signed by: Will Steele M.D. 10/14/2020 10:41 PM Dictated: 10/14/202239Transcribed: 10/14/202239 Code Status & VTE Plan Code Status Full code VTE Prophylaxis Plan VTE Prophylaxis will be ordered: Yes PG Care Time/CCT Total # of Minutes Spent Total Time Spent with Patient: Total time spent is greater than 50% in coordination of care (as documented) at patient's floor/unit and/or counseling patient: Coding Level of Care Code 47532 OBS Care - Level 3 Diagnoses Acute shoulder pain M25.512 Laterality: left Anxiety F41.9 HTN (hypertension) I10 Hypertension type: unspecified Allergic rhinitis J30.9 FH: CAD (coronary artery disease) Z82.49 (1) Acute shoulder pain Laterality: left Qualified Code(s): M25.512 - Pain in left shoulder (2) HTN (hypertension) Hypertension type: unspecified Qualified Code(s): I10 - Essential (primary) hypertension
[2020-10-15 06:23] LABS: Basophils # (auto) 0.03 K/uL (0-0.2); Basophils % (auto) 0.3 %; Eosinophils # (auto) 0.39 K/uL (0-0.5); Eosinophils % (auto) 4.3 %; Hematocrit (blood only) 42.6 % (42-52); Hemoglobin 14.4 g/dL (14.0-18.0); Immature Granulocytes # (auto) 0.04 K/uL (0.00-0.02); Immature Granulocytes % (auto) 0.4 %; Lymphocytes # (auto) 2.62 K/uL (1.2-3.4); Lymphocytes % (auto) 28.7 %; Mean Corpuscular Hgb Conc 33.8 g/dL (32-36); Mean Corpuscular Volume 91.8 fL (80-100); Mean Platelet Volume 11.1 fL (7.4-10.4); Monocytes # (auto) 0.75 K/uL (0.11-0.59); Monocytes % (auto) 8.2 %; Neutrophils # (auto) 5.29 K/uL (1.4-6.5); Neutrophils % (auto) 58.1 %; Platelet Count 236 K/uL (130-400); RDW Coefficient of Variation 12.4 % (11.5-14.5); RDW Standard Deviation 41.9 fL (36.4-46.3); Red Blood Count 4.64 M/uL (4.7-6.1); White Blood Count 9.12 K/uL (4.8-10.8)
[2020-10-15 06:59] LABS: Albumin Level 3.4 gm/dl (3.4-5.0); BUN Creatinine Ratio 18.3 (10-20); Blood Urea Nitrogen 21 mg/dl (7-18); Calcium 9.1 mg/dl (8.5-10.1); Carbon Dioxide 28 mmol/L (21-32); Chloride 109 mmol/L (98-107); Creatinine Clr Calc Pharmacy 47.3 ml/min; Est GFR (African American) 72.5; Est GFR (Non-African American) 62.6; Glucose 96 mg/dl (70-99); Sodium 140 mmol/L (136-145)
[2020-10-15 07:04] LABS: Phosphorus 3.8 mg/dl (2.5-4.9); Troponin I < 0.015 ng/ml (0-0.045)
[2020-10-15] MEDS ORDERED: MULTIVITAMIN TAB PO SCH (09:00)
[2020-10-15] MEDS ORDERED: lisinopril 10 MG TAB PO SCH (09:00)
[2020-10-15] MEDS ORDERED: ASPIRIN 81 MG ECTAB PO SCH (09:00)
[2020-10-15] MEDS ORDERED: LORATADINE 10 MG TAB PO SCH (09:00)
--- NOTE | 2020-10-15 12:32 | XCELERA ---
[id number]
--- NOTE | 2020-10-15 12:41 | Discharge Summary ---
Date of Service October 15, 2020 Admission HPI Per Admitting Provider The patient is a 80-year-old male with a past medical history including hypertension, family history of CAD, adhesive capsulitis of shoulder, lumbar spondylolisthesis, allergic rhinitis, 60% left ICA stenosis, Dupuytren's contracture, anxiety and PVCs. He presents with symptoms as noted above. Symptoms at this time in the emergency department are primarily brought on by twisting motion. He has not had any symptoms in the past. He denies any leg cramping recent travels. He denies any recent illnesses or exposures. Admission Exam Per Admitting Provider The patient is awake, alert and oriented 3, well developed and well nourished, normocephalic and atraumatic, lying in bed and in no acute distress. HEENT--PERRL, EOMI, mucous membranes and oropharynx normal. Neck--supple. No JVD. No bruits. Thyroid normal, trachea midline, no adenopathy. Heart--normal S1 and S2. No murmurs, rubs or gallops. Lungs--clear bilaterally, no respiratory distress, no accessory muscle use. Abdomen--normal bowel sounds and soft. Nontender. Nondistended, no hernias or masses, no organomegaly. Extremities--no cyanosis or clubbing. No edema. Dermatologic--normal skin turgor, normal color, no abnormal lymph nodes, no rash. Neurologic--cranial nerves II through XII grossly intact. Rheumatologic--normal range of motion. Psychiatric--normal affect. Principal Diagnosis musculoskeletal chest pain Discharge Exam Constitutional WD/WN, vitals as above Respiratory normal respiratory effort, lungs clear to auscultation Cardiovascular RRR, no murmur, no edema Musculoskeletal left rhomboid area pain which worsens with palpation Skin no rashes, warm and dry Psychiatric Orientation: alert and oriented x 3 Affect: + anxious affect Discharge Data Allergies Allergy/AdvReac Type Severity Reaction Status Date / Time Penicillins Allergy Intermediate BODY RASH Verified 10/14/20 23:02 Consultations 10/14/20 23:49 ED Decision to Admit Stat Hospital Course (1) Acute shoulder pain: 80 yo M Hx anxiety, HTN admitted for chest pain rule out due to left sided acute shoulder pain. Left shoulder pain: - Presented with acute left shoulder pain. - Due to tobacco history and HTN, FHx CAD, patient was admitted for observation of troponins and chest pain workup. - Troponins x2 negative, multiple EKGs without ST or T wave abnormalities. - Echo performed which showed normal LVEF, no wall motion abnormalities. - Able to reproduce pain on exam with palpation of left rhomboid area. Patient admits to lots of repetitive motions such as rotating to the left which worsens pain as well. - Advised PCP follow up for musculoskeletal causes of pain, NSAIDs, topical pain control, stretches. Total Time Total Time Spent Total Time Spent (In Minutes): see attending attestation Discharge Plan Discharge Items Patient Disposition: Home - Self-Care Reason For Visit: CHEST PAIN Discharge Diagnosis: musculoskeletal pain Activity: Per Instructions section Non-emergency contact: Primary Care Provider Call non-emergency contact if: your symptoms worsen Follow-up/Referrals: Robina Khan MD [Primary Care Provider] - Diet: Regular Addtl Attending Provider Instructions: You were admitted to the hospital for a cardiac rule out. What this means is we checked your EKGs and cardiac enzymes for signs of heart attack; these were negative. You had an Echocardiogram ordered which showed no findings that would suggest heart damage. We felt safe to discharge you home as your symptoms are likely due to a muscular or bony cause. We would recommend you follow up with your family doctor regarding your shoulder pain, in order to further evaluate and seek treatment for it. If you have any crushing chest pain or pressure, trouble breathing, sensation that you are going to pass out, please come to the ER for another evaluation. Pending Studies at Discharge: No Stand-Alone Forms: My [facility], Smoking Cessation Medications and DC Order Prescriptions: Continued lisinopril 10 mg tablet 10 mg PO DAILY Qty: 90 RF: 1 aspirin 81 mg tablet 81 mg PO DAILY Qty: 1 RF: 0 loratadine 10 mg capsule 10 mg PO DAILY RF: 0 hydroxyzine pamoate 25 mg capsule 25 mg PO TID PRN (Reason: anxiety) RF: 0 multivitamin [Daily Multi-Vitamin] tablet 1 tab PO DAILY RF: 0 clonazepam 0.5 mg tablet 0.5 mg PO HS RF: 0 Discharge Orders: Discharge Order (Routine); Ordered 10/15/20 Ordered By: Johny Cruz Admission Data Admit Date/Time: 10/15/20 01:40 Attending Provider: Johny Cruzit Provider: Corey Abreu Primary Care Provider: Robina Khan Other Providers: Corey Abreu Other Interventions: Discharge Summary Assessment (RN) Last Done: 10/15/20 13:21 Supervising Physician Co-Signing Physician Notes Patient seen and examined independently of PGY-2 Dr. Robert. Agree with history, exam findings, assessment and plan of care as outlined. In brief, Mr. Jones is a 80 year old male with history of tobacco use, HTN and family history of CAD admitted with left sided scapular pain. Troponins negative x3. TTE without regional wall motion abnormality. On exam, scapular pain is reproducible with palpation over the left rhomboid area and with motion. Other chronic issues were stable and home medications continued. Discharge home today. I personally 20 minutes discharge planning for this patient. Resident Activity Tracking Resident Involvement: Resident Care Provided Care Provided: Adult Hospital Medicine
--- NOTE | 2020-10-15 13:16 | Electrocardiogram Report ---
Test Reason : Blood Pressure : / mmHG Vent. Rate : 065 BPM Atrial Rate : 065 BPM P-R Int : 196 ms QRS Dur : 072 ms QT Int : 390 ms P-R-T Axes : 062 -12 055 degrees QTc Int : 405 ms Normal sinus rhythm Normal ECG When compared with ECG of 14-OCT-2020 23:29, (unconfirmed) No significant change was found Confirmed by Avinash Benson ([id number]) on 10/15/2020 1:16:15 PM Referred By: REFERRED SELF Confirmed By:Avinash Benson
[2020-10-15] MEDS ORDERED: clonazePAM 0.5 MG TAB PO SCH (21:00)
== END 2020-10-15 14:47 | disposition home or self-care (01) ==
LOC: 2S 21:42 → ED 21:42 → SUATTDRO 10-15 01:40 → 2S 10-15 02:00

== ENCOUNTER 2022-08-22 13:53 | Inpatient (IN) ==
[2022-08-22 15:45] LABS: Basophils # (auto) 0.05 K/uL (0-0.2); Basophils % (auto) 0.7 %; Eosinophils # (auto) 0.07 K/uL (0-0.50); Hematocrit (blood only) 41.4 % (42.0-52.0); Hemoglobin 14.1 g/dl (14.0-18.0); Immature Granulocytes # (auto) 0.03 K/uL (0.01-0.20); Immature Granulocytes % (auto) 0.4 %; Lymphocytes % (auto) 12.6 %; Mean Corpuscular Hemoglobin 31.3 pg (25.0-34.0); Mean Corpuscular Hgb Conc 34.1 g/dL (32.0-36.0); Mean Corpuscular Volume 91.8 fL (80.0-100.0); Mean Platelet Volume 11.6 fL (9.4-12.4); Monocytes # (auto) 0.39 K/uL (0.11-0.59); Monocytes % (auto) 5.4 %; Neutrophils # (auto) 5.72 K/uL (1.40-6.50); Neutrophils % (auto) 79.9 %; Platelet Count 241 K/uL (130-400); RDW Coefficient of Variation 11.9 % (11.5-14.5); RDW Standard Deviation 40.1 fL (36.4-46.3); Red Blood Count 4.51 M/uL (4.70-6.10); White Blood Count 7.16 K/ul (4.8-10.8)
[2022-08-22 15:46] LABS: Alanine Aminotransferase 17 U/L (7-52); Albumin Globulin Ratio 1.5 (0.9-2); Albumin Level 4.5 gm/dl (3.4-5.0); Alkaline Phosphatase 63 U/L (34-104); Anion Gap 5 (3-11); Aspartate Aminotransferase 26 U/L (13-39); BUN Creatinine Ratio 17.1 (10-20); Bilirubin,Total 0.4 mg/dl (0.2-1.0); Blood Urea Nitrogen 22 mg/dl (6-23); Calcium 9.7 mg/dl (8.5-10.1); Carbon Dioxide 32 mmol/L (21-32); Chloride 102 mmol/L (98-107); Creatinine Clr Calc Pharmacy 41.2 ml/min; Est GFR (African American) 60.3 ml/min; Globulin 3.1 gm/dl (2.5-4.0); Glucose 109 mg/dl (70-99(Fasting)); Lipase 24 U/L (11-82); Potassium 4.2 mmol/L (3.5-5.1); Sodium 139 mmol/L (136-145); Total Protein 7.6 gm/dl (6.0-8.3)
[2022-08-22] MEDS ORDERED: SODIUM CHLORIDE 0.9% 1000ML 1,000 ML IV ONE (17:24)
--- NOTE | 2022-08-22 17:33 | Emergency Department Note ---
Impression & Plan Bowel perforation, Right upper quadrant abdominal pain, Colitis ED Provider Note NAME: RICK SOLORZANO AGE: 82 SEX: M : 1940 ARRIVES VIA: Walk-In INFORMANT: Patient, ED PROVIDER(S): Avinash Sung DO CHIEF COMPLAINT: Abdominal pain HPI: The patient is an 82-year-old male who presented to the emergency department for an evaluation of right-sided pain. The patient states that he developed right-sided abdominal pain over the course the last day. He started noticing this morning. Pain continued and worsened. He called his family doctor and was referred to the emergency department so "they can do a bunch of tests". The patient has been in triage for many hours. He did have some laboratory studies obtained. He states he had a similar process in the past when he had a problem with gallstones. The patient denies having any previous surgery on his abdomen. He denies having any rectal bleeding or diarrhea. The patient denies having any chest pain or difficulty breathing. ROS: See above HPI for pertinent positives & negatives. A total of 10 systems reviewed and were otherwise negative. PAST MEDICAL HISTORY: See Below PAST SURGICAL HISTORY: See Below FAMILY HISTORY: See Below SOCIAL HISTORY: See Below HOME MEDICATIONS: See Below ALLERGIES: GENERAL: Patient is awake alert in no acute distress patient is resting comfortably and showing no signs of anxiety EYES: The conjunctivae are clear. The pupils are round and reactive. EARS, NOSE, MOUTH AND THROAT: The nose is without any evidence of any deformity. Mucous membranes are moist. Tongue is midline. NECK: The neck is nontender and supple. RESPIRATORY: Normal respiratory effort is noted there is no evidence of wheezing rhonchi or rales CARDIOVASCULAR: Regular rate and rhythm noted there no murmurs rubs or gallops normal S1 normal S2. GASTROINTESTINAL: The abdomen is soft and mildly distended. There is right lower quadrant tenderness to palpation. MUSCULOSKELETAL/EXTREMITIES: There is no evidence of gross deformity full range of motion is noted in the hips and shoulders. SKIN: There is no obvious evidence of any rash. There are no petechiae, pallor or cyanosis noted. NEUROLOGIC: Patient is awake alert and oriented x 3. VITALS: See Below PHYSICAL EXAMINATION: MEDICAL DECISION MAKING: The patient is an 82-year-old male who presented to the emergency department for an evaluation of right upper quadrant abdominal pain. The patient has had abdominal pain throughout the entire day. He was referred to the emergency department by his primary care physician. The patient did have very significant abdominal pain on physical exam but laboratory studies were reassuring with a normal white blood cell count. The patient was treated with IV fluids. He did wish to have any pain medication. He was also given IV antibiotics after CT revealed signs of possible perforation. I discussed the patient's laboratory and radiographic studies with him. He continued to have reassuring vital signs. I discussed his condition with the on-call general surgeon. I also discussed his condition with the on-call [facility] hospitalist. They have agreed to evaluate the patient in the emergency department for further management and disposition. Likely the patient may require serial abdominal exams as well as serial radiographic follow-up studies. Triage Nursing notes reviewed. Prior medical records reviewed Vital Signs: reviewed and remarkable for no significant abnormalities Differential diagnosis: Etiologies such as appendicitis, diverticulitis, obstruction, inflammatory bowel disease, renal colic, PUD, biliary pathology, pancreatitis, mesenteric ischemia, aortic pathology, infections, genitourinary, UTI, perforated viscus, as well as others were entertained. ER treatment provided: See below Diagnostics interpreted by me: ECG: EKG was obtained in the emergency department. My interpretation is normal sinus rhythm at 72 bpm. There was no ectopy. There was no acute ST segment abnormalities noted. This was compared to a tracing from October 15, 2020. No changes were noted. Cardiac Monitoring: An order was placed for continuous cardiac monitoring. The monitor shows a rate of 72 bpm with sinus rhythm.. Laboratory studies: As stated above and show below. Imaging studies: See below. Radiographic imaging was reviewed by myself Consultation(s): I discussed this case with Dr. Diana who is on-call for general surgery I discussed this case with Dr. Abreu Past Med/Surg History Medical History (Updated 08/23/22 @ 08:54 by Avinash Sung DO) Adhesive capsulitis of shoulder Allergic rhinitis Anxiety Burning with urination Carotid artery narrowing Dupuytrens contracture Elevated prostate specific antigen (PSA) FH: CAD (coronary artery disease) HTN (hypertension) Lumbar spinal stenosis Prostate cancer (05/11/21) Psychological disorder PVCs (premature ventricular contractions) Spondylolisthesis, lumbar region Surgical History History of cataract surgery History of repair of rotator cuff History of umbilical hernia repair Family History Father Cardiac disorder Myocardial infarction Hypertension Heart disease Kidney disease Kidney failure Grandmother (Paternal) No problems noted. 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 Feels Safe at Home: Yes Safety Concerns: Feels Safe At This Time Childhood Exposure to Second-Hand Smoke: Yes during the past year weight has: remained stable Dental Care, Regularly: Yes Physical Activity Frequency: Other Physical Activity Frequency Comment: infrequent exercise Seatbelt Use: always Sunscreen Use: No Do you think of yourself as: straight/heterosexual Assistive Devices: Glasses Allergies Allergies Allergy/AdvReac Type Severity Reaction Status Date / Time Penicillins Allergy Intermediate BODY RASH Verified 08/22/22 19:34 Home Meds Home Medications Medication Instructions Recorded Confirmed loratadine 10 mg capsule 10 mg PO QAM 03/17/19 08/22/22 multivitamin (Daily Multi-Vitamin 1 tab PO .WITH SUPPER 03/19/19 08/22/22 tablet) cholecalciferol (vitamin D3) 50 50 mcg PO .WITH SUPPER 12/15/21 08/22/22 mcg (2,000 unit) capsule calcium carb 300 mg-D3 800 1 tab PO .WITH SUPPER 08/22/22 08/22/22 unit-mag ox 25 mg-pasteurizer helper 0.5 mg-michelle-Zn tablet (Caltrate + D3 Plus Minerals) ibuprofen 200 mg tablet 200 mg PO HS 08/22/22 08/22/22 leuprolide (3 month) 22.5 mg (3 22.5 mg subcut .EVERY 3 MONTHS 08/22/22 08/22/22 month) subcutaneous syringe lisinopril 10 mg tablet 10 mg PO QAM 08/22/22 08/22/22 Previous Rx's Medication Instructions Recorded clonazepam 0.5 mg tablet 0.5 mg PO HS #90 tabs 07/17/22 Results & Data (ED) Vital Signs Vital Signs - 24 hr 08/22/22 13:58 08/22/22 17:54 08/22/22 19:00 Temperature 36.4 C L Temperature Source Temporal Artery Scan Pulse Rate 90 75 Pulse Rate [Apical] 78 Respiratory Rate 18 18 19 Respiratory Effort / Characteristics Non-Labored Spontaneous Respiratory Depth Normal Respiratory Pattern Regular Blood Pressure 174/77 H 177/150 H Blood Pressure [Left Arm] 178/70 H Blood Pressure Mean 109 159 Blood Pressure Mean [Left Arm] 106 Pulse Oximetry 95 96 95 Oxygen Delivery Method Room Air Room Air Room Air Sepsis Recent Fever Within 48 Hours No Sepsis New/Unexplained Change in Mental Status No Sepsis Action Taken by Nursing No Action Required 08/22/22 19:30 08/22/22 20:00 Temperature Temperature Source Pulse Rate 87 90 Pulse Rate [Apical] Respiratory Rate 18 14 Respiratory Effort / Characteristics Respiratory Depth Respiratory Pattern Blood Pressure 164/79 H 167/80 H Blood Pressure [Left Arm] Blood Pressure Mean 107 109 Blood Pressure Mean [Left Arm] Pulse Oximetry 95 93 Oxygen Delivery Method Room Air Room Air Sepsis Recent Fever Within 48 Hours Sepsis New/Unexplained Change in Mental Status Sepsis Action Taken by Snf Medications Current Medication List: was personally reviewed by me Laboratory Data Attestation: I reviewed the patient's lab results. 08/22/22 15:05 08/22/22 15:05 Lab Results 08/22/22 08/22/22 08/22/22 Range/Units 15:05 15:05 15:05 WBC 7.16 (4.8-10.8) K/ul RBC 4.51 L (4.70-6.10) M/uL Hgb 14.1 (14.0-18.0) g/dl Hct 41.4 L (42.0-52.0) % MCV 91.8 (80.0-100.0) fL MCH 31.3 (25.0-34.0) pg MCHC 34.1 (32.0-36.0) g/dL RDW Std Deviation 40.1 (36.4-46.3) fL RDW Coeff of Shima 11.9 (11.5-14.5) % Plt Count 241 (130-400) K/uL MPV 11.6 (9.4-12.4) fL Immature Gran % (Auto) 0.4 % Neut % (Auto) 79.9 % Lymph % (Auto) 12.6 % [place] % (Auto) 5.4 % Eos % (Auto) 1.0 % Baso % (Auto) 0.7 % Neut # (Auto) 5.72 (1.40-6.50) K/uL Lymph # (Auto) 0.90 L (1.2-3.4) K/uL [place] # (Auto) 0.39 (0.11-0.59) K/uL Eos # (Auto) 0.07 (0-0.50) K/uL Baso # (Auto) 0.05 (0-0.2) K/uL Immature Gran # (Auto) 0.03 (0.01-0.20) K/uL ESR (0-20) mm/hr Sodium 139 (136-145) mmol/L Potassium 4.2 (3.5-5.1) mmol/L Chloride 102 (98-107) mmol/L Carbon Dioxide 32 (21-32) mmol/L Anion Gap 5 (3-11) BUN 22 (6-23) mg/dl Creatinine 1.29 (0.6-1.4) mg/dl Est Cr Clr Drug Dosing 41.2 ml/min Est GFR ( Amer) 60.3 ml/min Est GFR (Non-Af Amer) 52.0 ml/min BUN/Creatinine Ratio 17.1 (10-20) Glucose 109 H (70-99(Fasting)) mg/dl Calcium 9.7 (8.5-10.1) mg/dl Total Bilirubin 0.4 (0.2-1.0) mg/dl AST 26 (13-39) U/L ALT 17 (7-52) U/L Alkaline Phosphatase 63 (34-104) U/L Troponin I High Sens 11.3 (0-20) pg/ml C-Reactive Protein < 0.50 (0-0.5) mg/dl Total Protein 7.6 (6.0-8.3) gm/dl Albumin 4.5 (3.4-5.0) gm/dl Globulin 3.1 (2.5-4.0) gm/dl Albumin/Globulin Ratio 1.5 (0.9-2) Lipase 24 (11-82) U/L Procalcitonin (0-0.5) ng/ml Urine Color Yellow Urine Appearance Clear (Clear) Urine pH 6.5 (4.5-7.5) Ur Specific [place] 1.016 (1.000-1.030) Urine Protein Negative (Negative) Urine Glucose (UA) Negative (Negative) Urine Ketones Negative (Negative) Urine Blood Negative (Negative) Urine Nitrite Negative (Negative) Urine Bilirubin Negative (Negative) Urine Urobilinogen Negative (Negative) Ur Leukocyte Esterase Negative (Negative) SARS-CoV-2, RNA, NAAT (NEGATIVE) 08/22/22 08/22/22 08/22/22 Range/Units 15:05 15:05 15:37 WBC (4.8-10.8) K/ul RBC (4.70-6.10) M/uL Hgb (14.0-18.0) g/dl Hct (42.0-52.0) % MCV (80.0-100.0) fL MCH (25.0-34.0) pg MCHC (32.0-36.0) g/dL RDW Std Deviation (36.4-46.3) fL RDW Coeff of Shima (11.5-14.5) % Plt Count (130-400) K/uL MPV (9.4-12.4) fL Immature Gran % (Auto) % Neut % (Auto) % Lymph % (Auto) % [place] % (Auto) % Eos % (Auto) % Baso % (Auto) % Neut # (Auto) (1.40-6.50) K/uL Lymph # (Auto) (1.2-3.4) K/uL [place] # (Auto) (0.11-0.59) K/uL Eos # (Auto) (0-0.50) K/uL Baso # (Auto) (0-0.2) K/uL Immature Gran # (Auto) (0.01-0.20) K/uL ESR 21 H (0-20) mm/hr Sodium (136-145) mmol/L Potassium (3.5-5.1) mmol/L Chloride (98-107) mmol/L Carbon Dioxide (21-32) mmol/L Anion Gap (3-11) BUN (6-23) mg/dl Creatinine (0.6-1.4) mg/dl Est Cr Clr Drug Dosing ml/min Est GFR ( Amer) ml/min Est GFR (Non-Af Amer) ml/min BUN/Creatinine Ratio (10-20) Glucose (70-99(Fasting)) mg/dl Calcium (8.5-10.1) mg/dl Total Bilirubin (0.2-1.0) mg/dl AST (13-39) U/L ALT (7-52) U/L Alkaline Phosphatase (34-104) U/L Troponin I High Sens (0-20) pg/ml C-Reactive Protein (0-0.5) mg/dl Total Protein (6.0-8.3) gm/dl Albumin (3.4-5.0) gm/dl Globulin (2.5-4.0) gm/dl Albumin/Globulin Ratio (0.9-2) Lipase (11-82) U/L Procalcitonin < 0.05 (0-0.5) ng/ml Urine Color Urine Appearance (Clear) Urine pH (4.5-7.5) Ur Specific [place] (1.000-1.030) Urine Protein (Negative) Urine Glucose (UA) (Negative) Urine Ketones (Negative) Urine Blood (Negative) Urine Nitrite (Negative) Urine Bilirubin (Negative) Urine Urobilinogen (Negative) Ur Leukocyte Esterase (Negative) SARS-CoV-2, RNA, NAAT NEGATIVE (NEGATIVE) Administered Medications Clonazepam (Clonazepam 0.5 Mg Tab) 0.5 mg PO HS NKECHI Stop: 09/21/22 21:55 Last Admin: 08/22/22 22:23 Dose: 0.5 mg Documented By: DL Ceftriaxone Sodium 2,000 mg/ (Dextrose) 70 mls @ 100 mls/hr IV Q24H NKECHI; Protocol Stop: 09/02/22 03:59 Last Infusion: 08/23/22 06:06 Dose: 0 mls/hr Documented By: Admin: 08/23/22 05:24 Dose: 100 mls/hr Documented By: DL Metronidazole (Flagyl) 500 mg in 100 mls @ 100 mls/hr IV Q8H NKECHI Stop: 09/02/22 03:59 Last Infusion: 08/23/22 07:06 Dose: 0 mls/hr Documented By: Admin: 08/23/22 06:02 Dose: 100 mls/hr Documented By: SAMANTHA Dextrose/Sodium Chloride (D5w And 1/2nss) 1,000 mls @ 80 mls/hr IV .[id number] NKECHI Stop: 08/23/22 10:25 Last Admin: 08/22/22 22:25 Dose: Not Given Documented By: SAMANTHA Discontinued Medications Sodium Chloride (Nss 1000ml) 1,000 mls @ 999 mls/hr IV .[id number] ONE Stop: 08/22/22 18:24 Last Infusion: 08/22/22 19:45 Dose: 0 mls/hr Documented By: Admin: 08/22/22 18:43 Dose: 999 mls/hr Documented By: CEFERINO Cefoxitin Sodium (Mefoxin) 2,000 mg in 60 mls @ 100 mls/hr IV NOW STA Stop: 08/22/22 19:26 Last Infusion: 08/22/22 19:58 Dose: 0 mls/hr Documented By: Admin: 08/22/22 19:22 Dose: 100 mls/hr Documented By: SAMANTHA Metronidazole (Flagyl) 500 mg in 100 mls @ 100 mls/hr IV NOW STA Stop: 08/22/22 19:50 Last Infusion: 08/22/22 21:03 Dose: 0 mls/hr Documented By: Admin: 08/22/22 20:03 Dose: 100 mls/hr Documented By: SAMANTHA Ioversol (Optiray 350 100ml) 83 ml IV ONCE ONE Stop: 08/22/22 17:59 Last Admin: 08/22/22 18:00 Dose: 83 ml Documented By: TERRENCE Metoprolol Tartrate (Metoprolol Tartrate 1 Mg/Ml Vial) 5 mg IV NOW STA Stop: 08/22/22 21:07 Last Admin: 08/22/22 22:25 Dose: Not Given Documented By: SAMANTHA Metoprolol Tartrate (Metoprolol Tartrate 1 Mg/Ml Vial) Confirm Administered Dose 5 mg IV .STK-MED ONE Stop: 08/22/22 22:21 Last Admin: 08/22/22 22:30 Dose: Not Given Documented By: SAMANTHA Imaging Data Radiologist's Impression: Abdomen/Pelvis CT 08/22/22 17:24 CT OF THE ABDOMEN AND PELVIS WITH CONTRAST CLINICAL HISTORY: Right lower quadrant abdominal pain. COMPARISON STUDY: Renal ultrasound April 07, 2020. Treatment planning CT D 2020. TECHNIQUE: Following IV administration of 83 mL of Optiray, axial images of the abdomen and pelvis were obtained from the lung bases to the proximal femurs. Images were reviewed in the axial, sagittal, and coronal planes. IV contrast was administered without complication. Automated exposure control was utilized for the study. A dose lowering technique was utilized adhering to the principles of ALARA. CT DOSE: 408.11 mGycm FINDINGS: A small hiatal hernia is present. Liver, spleen, adrenal glands, right kidney and pancreas are normal. There is a 1.6 cm left renal cyst. There is no biliary or pancreatic ductal dilatation. There are fiducial markers within the prostate. Mild bladder wall thickening is noted. There are no urinary calculi. No hydronephrosis. There is no evidence for a bowel obstruction. The appendix is normal. A moderate amount of stool throughout the colon and rectum is noted. There is trace stranding along the inferior right hepatic lobe adjacent to the hepatic flexure of the colon. A few apparent locules of extraluminal gas are likely within decompressed loop of colon. No definite evidence for perforation. There is no lymphadenopathy. Extensive plaque of the abdominal aorta is noted. There is no aneurysm within the abdomen or pelvis. There are no suspicious osseous lesions. No lymphadenopathy. IMPRESSION: 1. No bowel obstruction. Normal appendix. Moderate stool throughout the colon and rectum. 2. Trace stranding along the inferior right hepatic lobe and adjacent to the hepatic flexure of the colon. This may reflect nonspecific mild inflammation. A few apparent locules of extraluminal gas are likely within decompressed colon. A contained perforation is considered less likely. If indicated, short-term follow-up CT of the abdomen could be obtained. 3. Mild bladder wall thickening. No hydronephrosis. No urinary calculi. ACT 112: Negative or not required by law. Electronically signed by: Hector Albrecht M.D. 08/22/2022 6:24 PM Discharge Plan Visit Data Chief Complaint: Abdominal Pain Stated Complaint: SEVERE ABD PAIN ED Provider: Avinash Sung Discharge Problem: Bowel perforation, Right upper quadrant abdominal pain, Colitis Patient Disposition: Admitted As Inpatient Discharge Instructions Interventions: ED Discharge Assessment Last Done: 08/22/22 21:53
[2022-08-22] MEDS ORDERED: OPTIRAY 350 100ml IV ONE (17:58)
[2022-08-22 18:23] LABS: Appearance Urine Clear (Clear); Bilirubin Urine Negative (Negative); Blood Urine Negative (Negative); Color Urine Yellow; Glucose Urine UA Negative (Negative); Ketones Urine Negative (Negative); Leukocyte Esterase Urine Negative (Negative); Nitrite Urine Negative (Negative); Protein Urine Negative (Negative); Specific Gravity Urine 1.016 (1.000-1.030); Urobilinogen Urine Negative (Negative); pH Urine 6.5 (4.5-7.5)
--- NOTE | 2022-08-22 18:26 | CT Scan Report ---
CT OF THE ABDOMEN AND PELVIS WITH CONTRAST CLINICAL HISTORY: Right lower quadrant abdominal pain. COMPARISON STUDY: Renal ultrasound April 07, 2020. Treatment planning CT July 18, 2021. TECHNIQUE: Following IV administration of 83 mL of Optiray, axial images of the abdomen and pelvis we re obtained from the lung bases to the proximal femurs. Images were reviewed in the axial, sagittal, and coronal planes. IV contrast was administered without complication. Automated exposure control wa s utilized for the study. A dose lowering technique was utilized adhering to the principles of ALARA . CT DOSE: 408.11 mGycm FINDINGS: A small hiatal hernia is present. Liver, spleen, adrenal glands, right kidney and pancreas are normal. There is a 1.6 cm left renal cyst. There is no biliary or pancreatic ductal dilatation. T here are fiducial markers within the prostate. Mild bladder wall thickening is noted. There are no ur inary calculi. No hydronephrosis. There is no evidence for a bowel obstruction. The appendix is nimo l. A moderate amount of stool throughout the colon and rectum is noted. There is trace stranding pato g the inferior right hepatic lobe adjacent to the hepatic flexure of the colon. A few apparent locule s of extraluminal gas are likely within decompressed loop of colon. No definite evidence for perforat ion. There is no lymphadenopathy. Extensive plaque of the abdominal aorta is noted. There is no aneur ysm within the abdomen or pelvis. There are no suspicious osseous lesions. No lymphadenopathy. IMPRESSION: 1. No bowel obstruction. Normal appendix. Moderate stool throughout the colon and rectum. 2. Trace stranding along the inferior right hepatic lobe and adjacent to the hepatic flexure of the c olon. This may reflect nonspecific mild inflammation. A few apparent locules of extraluminal gas are likely within decompressed colon. A contained perforation is considered less likely. If indicated, sh ort-term follow-up CT of the abdomen could be obtained. 3. Mild bladder wall thickening. No hydronephrosis. No urinary calculi. ACT 112: Negative or not required by law. Electronically signed by: Hector Albrecht M.D. 08/22/2022 6:24 PM
[2022-08-22] MEDS ORDERED: metroNIDAZOLE 500 MG/100 ML BAG IV STA (18:51)
[2022-08-22] MEDS ORDERED: cefOXitin 2,000 MG/60 ML BAG IV STA (18:51)
[2022-08-22 19:29] LABS: Troponin I High Sensitivity 11.3 pg/ml (0-20)
--- NOTE | 2022-08-22 20:19 | History & Physical Report ---
Date of Service August 22, 2022 Assessment & Plan (1) Abdominal pain: Plan: This is an 82-year-old male with a history of hypertension, carotid artery stenosis, prostate cancer s/p radiation therapy on hormonal treatment, prior umbilical hernia repair who presented to [facility] for evaluation of R-sided abdominal pain, subsequently found to have evidence of mild colitis at the hepatic flexure and suspected extraluminal free air on CT- A/P. His presentation is concerning for possible microperforation. R-sided Abdominal Pain, Mild Colitis with Extraluminal Gas -- ?colonic perforation - Presented to the ED with several hours of junctional RUQ/RLQ sharp and constant abdominal pain at the recommendation of PCP - Work-up as follows: - History of umbilical hernia surgery, radiation for prostate cancer - WBC 7.1 on arrival; ESR, CRP, PCT pending - CTAP: "trace stranding along the inferior right hepatic lobe ... this may reflect nonspecific mild inflammation ... few apparent locules of extraluminal gas are likely within decompressed colon ... contained perforation is considered less likely." - No rebound/guarding on exam - Moderate stool burden on CT - Acute-onset abdominal pain with findings on CT are concerning for contained microperforation. Thankfully no e/o cholecystitis, appendicis, renal issues. May also be a component of constipation at play, and ?underlying IBS (per patient) - Consult General Surgery: ED provider spoken with on-call surgeon, no immediate interventions required at time of admission --> Appreciate insight/recommendations for repeat CT scanning - ABX: CFTX + Flagyl scheduled until acute issues have stabilized / follow-up imaging has been performed - NPO, D5-1/2NSS @ 80cc/hr x 1L ordered - Pain: APAP 1000mg q8h PRN - Upright CXR and KUB with any increase in pain - Admit to monitored bed for now (2) HTN (hypertension): Plan: HTN - Hold home losartan until procedural plan becomes more clear; resume if no plans for surgery - Can consider PRN hydralazine, amlodipine in the interval (3) Anxiety: Plan: Anxiety - Continue home Klonopin Plan Code: Full Diet: NPO, D5-1/2NS @ 80cc/hr x 1L PPX: SCDs Dispo: [facility]ST Consults: GenSurg History of Present Illness Primary Care Provider: Robina Khan MD This is an 82-year-old male with a history of hypertension, carotid artery stenosis, prostate cancer s/p radiation currently on hormonal therapy who presented to [facility] for evaluation of abdominal pain. Patient states that he was otherwise in his normal health up until this morning, when he woke up with a sharp, constant abdominal pain at the junction of his right upper/right lower quadrants. He said that while it was notable, he was able to participate in his activities of daily living. About 4 to 5 hours later, he noticed it was still there, so he decided to call his family doctor. His family doctor did recommend that he go into the ER for further evaluation. Thankfully to me, he denies any fever, chills, sweats. He denies worsening of his abdominal pain since this morning. He has been able to eat and drink without difficulty. He does state that he has a longstanding history of "a lot of gas "after and before eating, which is not changed at all lately. He does have a history of umbilical hernia surgery. In the ED, patient was found to be hemodynamically stable with blood pressure 175/80 with heart rate 90, afebrile at 36.4. Admission labs notable for WBC 7.1, hemoglobin 14, BUN 22/creatinine 1.29. CT of the abdomen and pelvis demonstrated "trace stranding along the inferior right hepatic lobe and adjacent to the hepatic flexure of the colon. This may reflect nonspecific mild inflammation. A few apparent locules of extraluminal gas are likely within decompressed colon. A contained perforation is considered less likely." He was given NSS, cefoxitin, and metronidazole. Allergies Allergy/AdvReac Type Severity Reaction Status Date / Time Penicillins Allergy Intermediate BODY RASH Verified 08/22/22 19:34 Home Medications Medication Instructions Recorded Confirmed Type loratadine 10 mg capsule 10 mg PO QAM 03/17/19 08/22/22 History multivitamin (Daily Multi-Vitamin 1 tab PO .WITH SUPPER 03/19/19 08/22/22 History tablet) cholecalciferol (vitamin D3) 50 50 mcg PO .WITH SUPPER 12/15/21 08/22/22 History mcg (2,000 unit) capsule clonazepam 0.5 mg tablet 0.5 mg PO HS #90 tabs 07/17/22 08/22/22 Rx calcium carb 300 mg-D3 800 1 tab PO .WITH SUPPER 08/22/22 08/22/22 History unit-mag ox 25 mg-copy editor 0.5 mg-michelle-Zn tablet (Caltrate + D3 Plus Minerals) ibuprofen 200 mg tablet 200 mg PO HS 08/22/22 08/22/22 History leuprolide (3 month) 22.5 mg (3 22.5 mg subcut .EVERY 3 MONTHS 08/22/22 08/22/22 History month) subcutaneous syringe lisinopril 10 mg tablet 10 mg PO QAM 08/22/22 08/22/22 History Past Med/Surg History Medical History (Updated 08/23/22 @ 08:54 by Avinash Sung DO) Adhesive capsulitis of shoulder Allergic rhinitis Anxiety Burning with urination Carotid artery narrowing Dupuytrens contracture Elevated prostate specific antigen (PSA) FH: CAD (coronary artery disease) HTN (hypertension) Lumbar spinal stenosis Prostate cancer (05/11/21) Psychological disorder PVCs (premature ventricular contractions) Spondylolisthesis, lumbar region Surgical History History of cataract surgery History of repair of rotator cuff History of umbilical hernia repair Family History Father Cardiac disorder Myocardial infarction Hypertension Heart disease Kidney disease Kidney failure Grandmother (Paternal) No problems noted. 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 HEENT: NCAT. - Eyes - Sclera are white, anicteric, and without injection. - Mouth - MMM - Neck - supple, no appreciable JVD Cardiac: Normal rate and regular rhythm; S1 and S2 present with no murmurs, rubs, or gallops. Pulmonary: Good respiratory effort with symmetric expansion of the chest. No use of accessory muscles. Lungs were clear to auscultation bilaterally with no crackles or wheezes. Abdominal: Normo-hyperactive bowel sounds. Abdomen was soft, mildly distended, and with +mild TTP at the junction of the RUQ/RLQ. No crepitus. No rebound/guarding. Extremities: Upper and lower extremities are warm and well perfused. No peripheral edema in the lower extremities bilaterally Psych: Well-developed, well-nourished, appropriately dressed for occasion. Behavior is cooperative and appropriate. Affect is WNL. Insight is appropriate. Results & Data Results & Data ([facility]) Vital Signs (Past 12 Hours) Vital Signs Temp Pulse Pulse Resp BP BP Pulse Ox 08/22/22 17:54 78 18 178/70 H 96 08/22/22 13:58 36.4 C L 90 18 174/77 H 95 O2 Del Method 08/22/22 17:54 Room Air 08/22/22 13:58 Room Air Supervising Physician Co-Signing Physician Notes Attending addendum: I have physically seen this patient, have supervised the medical residents activities, and agree with the H&P unless as otherwise noted. Assessment and Plan: Right-sided colitis with possible extraluminal gas/question colonic perforation- Patient feels significantly improved while in the ED Given Mefoxin 2 g IV and Flagyl 500 mg IV by the ED, along with NSS 1 L Admit on ceftriaxone 2 g IV daily and Flagyl 5 mg IV every 8 hours N.p.o. D5 half-normal saline at 80 mils per hour x1 L General surgery consult by the ED will follow, does not feel surgery is indicated at this time Follow serial CBC with differential and chemistry panel Acetaminophen 1 g IV every 8 hours. Mild pain or fever Hypertension- Hold losartan Hydralazine 10 mg IV every 4 hours as needed systolic blood pressure greater than 160 Remaining orders and notations as noted Resident Activity Tracking Resident Involvement: Resident Care Provided Care Provided: Adult Hospital Medicine (1) HTN (hypertension) Hypertension type: unspecified Qualified Code(s): I10 - Essential (primary) hypertension
[2022-08-22] MEDS ORDERED: METOPROLOL TARTRATE 1 MG/ML VIAL IV STA (21:06)
[2022-08-22 21:31] LABS: C Reactive Protein < 0.50 mg/dl (0-0.5)
[2022-08-22] MEDS ORDERED: D5W AND 1/2NSS 1,000 ML IV SCH (21:56)
[2022-08-22] MEDS ORDERED: ACETAMINOPHEN 1,000 MG/100 ML VIAL IV PRN (21:56)
[2022-08-22] MEDS ORDERED: METOPROLOL TARTRATE 1 MG/ML VIAL IV ONE (22:20)
[2022-08-22] MEDS: clonazePAM 0.5 MG TAB PO SCH (22:23)
[2022-08-23] MEDS: cefTRIAXone SODIUM 2,000 MG in DEXTROSE 5% 50 ML IV SCH (05:24)
[2022-08-23] MEDS: metroNIDAZOLE 500 MG/100 ML BAG IV SCH ×3 (06:02→20:28)
[2022-08-23 06:23] LABS: Basophils # (auto) 0.04 K/uL (0-0.2); Basophils % (auto) 0.6 %; Eosinophils # (auto) 0.34 K/uL (0-0.50); Hematocrit (blood only) 36.5 % (42.0-52.0); Hemoglobin 12.5 g/dl (14.0-18.0); Immature Granulocytes # (auto) 0.03 K/uL (0.01-0.20); Immature Granulocytes % (auto) 0.4 %; Lymphocytes # (auto) 1.24 K/uL (1.2-3.4); Lymphocytes % (auto) 18.1 %; Mean Corpuscular Hemoglobin 30.9 pg (25.0-34.0); Mean Corpuscular Hgb Conc 34.2 g/dL (32.0-36.0); Mean Corpuscular Volume 90.3 fL (80.0-100.0); Mean Platelet Volume 11.1 fL (9.4-12.4); Monocytes # (auto) 0.74 K/uL (0.11-0.59); Monocytes % (auto) 10.8 %; Neutrophils # (auto) 4.45 K/uL (1.40-6.50); Neutrophils % (auto) 65.1 %; Platelet Count 209 K/uL (130-400); RDW Coefficient of Variation 12.1 % (11.5-14.5); RDW Standard Deviation 39.7 fL (36.4-46.3); Red Blood Count 4.04 M/uL (4.70-6.10); White Blood Count 6.84 K/ul (4.8-10.8)
[2022-08-23 06:36] LABS: Albumin Globulin Ratio 1.4 (0.9-2); Albumin Level 3.6 gm/dl (3.4-5.0); BUN Creatinine Ratio 17.1 (10-20); Bilirubin,Total 0.5 mg/dl (0.2-1.0); Creatinine Clr Calc Pharmacy 50.6 ml/min; Est GFR (African American) 77.3 ml/min; Est GFR (Non-African American) 66.7 ml/min; Globulin 2.6 gm/dl (2.5-4.0); Potassium 3.7 mmol/L (3.5-5.1); Total Protein 6.2 gm/dl (6.0-8.3)
--- NOTE | 2022-08-23 08:56 | Hospitalist Progress Note ---
Date of Service August 23, 2022 Assessment & Plan (1) Abdominal pain: Plan: This is an 82-year-old male with a history of hypertension, carotid artery stenosis, prostate cancer s/p radiation therapy on hormonal treatment, prior umbilical hernia repair who presented to [facility] for evaluation of R-sided abdominal pain, subsequently found to have evidence of mild colitis at the hepatic flexure and suspected micro perforartion with small amounts of extraluminal free air on CT-A/P. His presentation is concerning for possible microperforation. R-sided Abdominal Pain, Acute Mild Colitis with possible micro perforation - Presented to the ED with several hours of junctional RUQ/RLQ sharp and constant abdominal pain at the recommendation of PCP - CT are concerning for contained microperforation. - Consult General Surgery: ED provider spoken with on-call surgeon, no immediate interventions required at time of admission - ABX: Ceftriaxone + Flagyl (2) HTN (hypertension): Plan: HTN chronic and stable - Hold losartan until procedural plan becomes more clear; resume if no plans for surgery - Can consider PRN hydralazine, amlodipine in the interval (3) Anxiety: Plan: Anxiety chronic and stable - Continue home Klonopin Plan Code: Full Diet: NPO, D5-1/2NS @ 80cc/hr x 1L PPX: SCDs Dispo: [facility] Consults: GenSurg Admission and Anticipated Discharge Date Admission Date: August 22, 2022 Results & Data Results & Data ([place]) Vital Signs (Past 12 Hours) Vital Signs Pulse Resp BP Pulse Ox O2 Del Method 08/23/22 07:00 72 17 91 08/23/22 07:00 130/71 08/23/22 05:30 72 13 131/84 93 Room Air 08/23/22 05:00 74 14 132/82 92 Room Air 08/23/22 04:30 73 15 106/52 L 93 Room Air 08/23/22 04:00 70 13 125/63 93 Room Air 08/23/22 03:30 78 23 125/70 93 Room Air 08/23/22 03:00 72 14 144/74 H 93 Room Air 08/23/22 02:30 68 15 121/51 L 92 Room Air 08/23/22 02:00 69 17 115/44 L 92 Room Air 08/23/22 01:30 78 15 112/56 L 92 Room Air 08/23/22 01:00 70 18 138/64 93 Room Air 08/23/22 00:30 87 15 127/61 94 Room Air 08/23/22 00:00 73 14 142/62 H 92 Room Air 08/22/22 23:30 82 19 132/72 91 Room Air 08/22/22 23:00 86 21 139/73 93 Room Air 08/22/22 22:30 85 17 176/92 H 94 Room Air 08/22/22 22:27 92 H 17 160/106 H 97 Room Air 08/22/22 22:00 95 H 20 182/78 H 95 Room Air 08/22/22 21:30 93 H 15 167/94 H 95 Room Air Diagnostic Findings Reviewed CBC Reviewed PRP Reviewed LFTs PG Care Time/CCT Total # of Minutes Spent Total Time Spent with Patient: Total time spent is greater than 50% in coordination of care (as documented) at patient's floor/unit and/or counseling patient: Coding Diagnoses Abdominal pain R10.9 HTN (hypertension) I10 Hypertension type: unspecified Anxiety F41.9 (1) HTN (hypertension) Hypertension type: unspecified Qualified Code(s): I10 - Essential (primary) hypertension
[2022-08-23] MEDS ORDERED: LORATADINE 10 MG TAB PO SCH (09:00)
--- NOTE | 2022-08-23 09:06 | Surgery Consultation ---
Date of Consultation August 23, 2022 Assessment & Plan (1) Colitis: pt is a 82 year-old male who presents with Right side abdominal pain, IMP: colitis, plan, base on pt's H/P, labs and CT scan micro- colon perforation is unlikely, no surgery indication now, conservative treatment now, NPO, IV fluid iv anti biotic, may start clear diet tomorrow if pt is still fine, repeat labs KUB in morning. pt agreed with the plan, I answered all questions, will F/U Thanks, History of Present Illness Reason for Consultation: diverticulitis Requesting Physician: Sukhjinder Palmer MD Attending Physician: Sukhjinder Palmer MD History of Present Illness CHIEF COMPLAINT: Abdominal pain HPI: The patient is an 82-year-old male who presented to the emergency department for an evaluation of right-sided pain. The patient states that he developed right-sided abdominal pain over the course the last day. He started noticing this morning. Pain continued and worsened. He called his family doctor and was referred to the emergency department so "they can do a bunch of tests". The patient has been in triage for many hours. He did have some laboratory studies obtained. He states he had a similar process in the past when he had a problem with gallstones. The patient denies having any previous surgery on his abdomen. He denies having any rectal bleeding or diarrhea. The patient denies having any chest pain or difficulty breathing. I ( Home [place] MD ) got a call for consult diverticulitis, possible micro- colon perforation, I reviewed pt's H/P, labs and CT scan with pt, pt has no abdominal pain now, pt said the right side abdominal pain was gone last night, pt denies fever, no nausea, no vomiting, Allergies Allergy/AdvReac Type Severity Reaction Status Date / Time Penicillins Allergy Intermediate BODY RASH Verified 08/22/22 19:34 Home Medications E Medication Instructions Recorded Confirmed Type loratadine 10 mg capsule 10 mg PO QAM 03/17/19 08/22/22 Histor y multivitamin (Daily Multi-Vitamin 1 tab PO .WITH SUPPER 03/19/19 02/08/13 History tablet) cholecalciferol (vitamin D3) 50 50 mcg PO .WITH SUPPER 12/15/2108/22 History mcg (2,000 unit) capsule clonazepam 0.5 mg tablet 0.5 mg PO HS #90 tabs 07/17/22 08/22/22 Rx calcium carb 300 mg-D3 800 1 tab PO .WITH SUPPER 08/22/22 08/22/22 Hi story unit-mag ox 25 mg-photocopying machine operator 0.5 mg-michelle-Zn tablet (Caltrate + D3 Plus Minerals) ibuprofen 200 mg tablet 200 mg PO HS 08/22/22 08/22/22 History leuprolide (3 month) 22.5 mg (3 22.5 mg subcut .EVERY 3 MONTHS 08/22/22 08/22/22 History month) subcutaneous syringe lisinopril 10 mg tablet 10 mg PO QAM 08/22/22 08/22/22 History Past Med/Surg History Medical History(Updated 08/22/22 @ 20:18 by Jonnathan Gonzalez MD) Adhesive capsulitis of shoulder Allergic rhinitis Anxiety Burning with urination Carotid artery narrowing Dupuytrens contracture Elevated prostate specific antigen (PSA) FH: CAD (coronary artery disease) HTN (hypertension) Lumbar spinal stenosis Prostate cancer (05/11/21) Psychological disorder PVCs (premature ventricular contractions) Spondylolisthesis, lumbar region Surgical History History of cataract surgery History of repair of rotator cuff History of umbilical hernia repair Family History Father Cardiac disorder Myocardial infarction Hypertension Heart disease Kidney disease Kidney failureGrandmother (Paternal) No problems noted. 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 Safe at Home: Yes Childhood Exposure to Second-Hand Smoke: Yes during the past year weight has: remained stable Dental Care, Regularly: Yes Physical Activity Frequency: Other Physical Activity Frequency Comment: infrequent exercise Seatbelt Use: always Sunscreen Use: No Do you think of yourself as: straight/heterosexual Assistive Devices: None Review of Systems Review of Systems: as per HPI Allergies Allergy/AdvReac Type Severity Reaction Status Date / Time Penicillins Allergy Intermediate BODY RASH Verified 08/22/22 19:34 Home Medications Medication Instructions Recorded Confirmed Type loratadine 10 mg capsule 10 mg PO QAM 03/17/19 08/22/22 History multivitamin (Daily Multi-Vitamin 1 tab PO .WITH SUPPER 03/19/19 08/22/22 History tablet) cholecalciferol (vitamin D3) 50 50 mcg PO .WITH SUPPER 12/15/21 08/22/22 History mcg (2,000 unit) capsule clonazepam 0.5 mg tablet 0.5 mg PO HS #90 tabs 07/17/22 08/22/22 Rx calcium carb 300 mg-D3 800 1 tab PO .WITH SUPPER 08/22/22 08/22/22 History unit-mag ox 25 mg-photocopying machine operator 0.5 mg-michelle-Zn tablet (Caltrate + D3 Plus Minerals) ibuprofen 200 mg tablet 200 mg PO HS 08/22/22 08/22/22 History leuprolide (3 month) 22.5 mg (3 22.5 mg subcut .EVERY 3 MONTHS 08/22/22 08/22/22 History month) subcutaneous syringe lisinopril 10 mg tablet 10 mg PO QAM 08/22/22 08/22/22 History Patient History Medical History (Updated 08/23/22 @ 08:54 by Avinash Sung DO) Adhesive capsulitis of shoulder Allergic rhinitis Anxiety Burning with urination Carotid artery narrowing Dupuytrens contracture Elevated prostate specific antigen (PSA) FH: CAD (coronary artery disease) HTN (hypertension) Lumbar spinal stenosis Prostate cancer (05/11/21) Psychological disorder PVCs (premature ventricular contractions) Spondylolisthesis, lumbar region Surgical History History of cataract surgery History of repair of rotator cuff History of umbilical hernia repair Family History Father Cardiac disorder Myocardial infarction Hypertension Heart disease Kidney disease Kidney failure Grandmother (Paternal) No problems noted. 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 Safe at Home: Yes Safety Concerns: Feels Safe At This Time Childhood Exposure to Second-Hand Smoke: Yes during the past year weight has: remained stable Dental Care, Regularly: Yes Physical Activity Frequency: Other Physical Activity Frequency Comment: infrequent exercise Seatbelt Use: always Sunscreen Use: No Do you think of yourself as: straight/heterosexual Assistive Devices: Glasses Review of Systems Constitutional: as per Subjective / HPI Eyes: as per Subjective / HPI Respiratory: as per Subjective / HPI Cardiovascular: Additional Comments: HTN Gastrointestinal: colitis Genitourinary: + dysuria Musculoskeletal: as per Subjective / HPI Neurologic: as per Subjective / HPI Psychiatric: as per Subjective / HPI Endocrine: as per Subjective / HPI Hematologic / Lymphatic: as per Subjective / HPI Physical Exam Constitutional: WD/WN, vitals as above no distress Eyes: PERRL, conjunctivae normal, anicteric sclerae Neck: trachea midline, no thyromegaly Respiratory: normal respiratory effort, lungs clear to auscultation Cardiovascular: RRR, no murmur, no edema Gastrointestinal (Abdomen): soft, NT, ND, a scar just below umbilical area, BS+ Musculoskeletal: no cyanosis or clubbing, extremities motor strength 5/5 Neurologic: patellar DTR's 2+ bilat, sensation intact Psychiatric: A+Ox3, euthymic affect Results & Data ([facility]) Vital Signs (Past 12 Hours) Vital Signs Pulse Resp BP Pulse Ox O2 Del Method 08/23/22 07:00 72 17 91 08/23/22 07:00 130/71 08/23/22 05:30 72 13 131/84 93 Room Air 08/23/22 05:00 74 14 132/82 92 Room Air 08/23/22 04:30 73 15 106/52 L 93 Room Air 08/23/22 04:00 70 13 125/63 93 Room Air 08/23/22 03:30 78 23 125/70 93 Room Air 08/23/22 03:00 72 14 144/74 H 93 Room Air 08/23/22 02:30 68 15 121/51 L 92 Room Air 08/23/22 02:00 69 17 115/44 L 92 Room Air 08/23/22 01:30 78 15 112/56 L 92 Room Air 08/23/22 01:00 70 18 138/64 93 Room Air 08/23/22 00:30 87 15 127/61 94 Room Air 08/23/22 00:00 73 14 142/62 H 92 Room Air 08/22/22 23:30 82 19 132/72 91 Room Air 08/22/22 23:00 86 21 139/73 93 Room Air 08/22/22 22:30 85 17 176/92 H 94 Room Air 08/22/22 22:27 92 H 17 160/106 H 97 Room Air 08/22/22 22:00 95 H 20 182/78 H 95 Room Air 08/22/22 21:30 93 H 15 167/94 H 95 Room Air Laboratory Results Abnormal lab results 08/22/22 08/22/22 08/22/22 Range/Units 15:05 15:05 15:05 RBC 4.51 L (4.70-6.10) M/uL Hgb (14.0-18.0) g/dl Hct 41.4 L (42.0-52.0) % Lymph # (Auto) 0.90 L (1.2-3.4) K/uL [place] # (Auto) (0.11-0.59) K/uL ESR 21 H (0-20) mm/hr Glucose 109 H (70-99(Fasting)) mg/dl 08/23/22 08/23/22 Range/Units 05:58 05:58 RBC 4.04 L (4.70-6.10) M/uL Hgb 12.5 L (14.0-18.0) g/dl Hct 36.5 L (42.0-52.0) % Lymph # (Auto) (1.2-3.4) K/uL [place] # (Auto) 0.74 H (0.11-0.59) K/uL ESR (0-20) mm/hr Glucose 106 H (70-99(Fasting)) mg/dl Diagnostic Findings CT OF THE ABDOMEN AND PELVIS WITH CONTRAST CLINICAL HISTORY: Right lower quadrant abdominal pain. COMPARISON STUDY: Renal ultrasound April 07, 2020. Treatment planning CT July 18, 2021. TECHNIQUE: Following IV administration of 83 mL of Optiray, axial images of the abdomen and pelvis were obtained from the lung bases to the proximal femurs. Images were reviewed in the axial, sagittal, and coronal planes. IV contrast was administered without complication. Automated exposure control was utilized for the study. A dose lowering technique was utilized adhering to the principles of ALARA. CT DOSE: 408.11 mGycm FINDINGS: A small hiatal hernia is present. Liver, spleen, adrenal glands, right kidney and pancreas are normal. There is a 1.6 cm left renal cyst. There is no biliary or pancreatic ductal dilatation. There are fiducial markers within the prostate. Mild bladder wall thickening is noted. There are no urinary calculi. No hydronephrosis. There is no evidence for a bowel obstruction. The appendix is normal. A moderate amount of stool throughout the colon and rectum is noted. There is trace stranding along the inferior right hepatic lobe adjacent to the hepatic flexure of the colon. A few apparent locules of extraluminal gas are likely within decompressed loop of colon. No definite evidence for perforation. There is no lymphadenopathy. Extensive plaque of the abdominal aorta is noted. There is no aneurysm within the abdomen or pelvis. There are no suspicious osseous lesions. No lymphadenopathy. IMPRESSION: 1. No bowel obstruction. Normal appendix. Moderate stool throughout the colon and rectum. 2. Trace stranding along the inferior right hepatic lobe and adjacent to the hepatic flexure of the colon. This may reflect nonspecific mild inflammation. A few apparent locules of extraluminal gas are likely within decompressed colon. A contained perforation is considered less likely. If indicated, short-term follow-up CT of the abdomen could be obtained. 3. Mild bladder wall thickening. No hydronephrosis. No urinary calculi. ACT 112: Negative or not required by law.
--- NOTE | 2022-08-23 12:16 | Hospitalist Progress Note ---
Date of Service August 23, 2022 Assessment & Plan (1) Abdominal pain: Plan: This is an 82-year-old male with a history of hypertension, carotid artery stenosis, prostate cancer s/p radiation therapy on hormonal treatment, prior umbilical hernia repair who presented to [facility] for evaluation of R-sided abdominal pain, subsequently found to have evidence of mild colitis at the hepatic flexure and suspected micro perforartion with small amounts of extraluminal free air on CT-A/P. His presentation is concerning for possible microperforation. R-sided Abdominal Pain, Acute Mild Colitis with possible micro perforation - Presented to the ED with several hours of junctional RUQ/RLQ sharp and constant abdominal pain at the recommendation of PCP - CT are concerning for contained microperforation. - Consult General Surgery: ED provider spoken with on-call surgeon, no immediate interventions required at time of admission - ABX: Ceftriaxone + Flagyl - Seen today by Dr. Medellin, no plans for surgical intervention as he feels perforation is unlikely - Clinically, abd pain has resolved, pt is not nauseated, no vomiting, HD stable, afebrile - Advance diet to clears this afternoon - Will advance to low residue in AM if continues to tolerate - Believe he would benefit to see GI as outpatient. Uncertain etiology of coli tis, ?ischemic, infectious, inflammatory (2) HTN (hypertension): Plan: HTN chronic and stable - Lisinopril held until procedural plan becomes more clear - Resumed today 2/2 (3) Anxiety: Plan: Anxiety chronic and stable - Continue home Klonopin Plan Plan as outlined above. Plan d/w Dr. Palmer. Admission and Anticipated Discharge Date Admission Date: August 22, 2022 Subjective Patient seen on daily rounds this morning. Remains in ER as a bed hold. Currently denies abd pain. Notes that the pain resolved yesterday evening. Seen by surgery this AM, no plan for surgical intervention. Has not had a BM since he believes Saturday. Normally has one every few days to every day, waxes and wanes. Has never seen GI. Does not take anything for constipation regularly. He has never been told he had colitis before but states that he has had "irritable bowel symptoms for years." Last colonoscopy was in his early 70s and was told it was normal. Physical Exam Physical Exam: GENERAL: 82 yo Well-developed, well-nourished WM. NAD. LUNGS: Clear to auscultation bilaterally. CARDIOVASCULAR: Regular rate and rhythm. ABDOMEN: Soft, non-tender and non-distended. No palpable masses. Bowel sounds normoactive x 4 quad. Results & Data Results & Data ([facility]) Vital Signs (Past 12 Hours) Vital Signs Pulse Pulse Resp BP BP Pulse Ox O2 Del Method 08/23/22 11:00 68 16 170/96 H 94 Room Air 08/23/22 10:30 103 H 15 91 08/23/22 10:30 124/78 08/23/22 10:01 78 23 91 08/23/22 10:01 133/112 H 08/23/22 09:00 72 16 91 08/23/22 09:00 116/66 08/23/22 07:30 74 17 94 08/23/22 07:30 128/83 08/23/22 07:00 72 17 91 08/23/22 07:00 130/71 08/23/22 05:30 72 13 131/84 93 Room Air 08/23/22 05:00 74 14 132/82 92 Room Air 08/23/22 04:30 73 15 106/52 L 93 Room Air 08/23/22 04:00 70 13 125/63 93 Room Air 08/23/22 03:30 78 23 125/70 93 Room Air 08/23/22 03:00 72 14 144/74 H 93 Room Air 08/23/22 02:30 68 15 121/51 L 92 Room Air 08/23/22 02:00 69 17 115/44 L 92 Room Air 08/23/22 01:30 78 15 112/56 L 92 Room Air 08/23/22 01:00 70 18 138/64 93 Room Air 08/23/22 00:30 87 15 127/61 94 Room Air Laboratory Results 08/23/22 05:58 08/23/22 05:58 PG Care Time/CCT Total # of Minutes Spent Total Time Spent with Patient: Total time spent is greater than 50% in coordination of care (as documented) at patient's floor/unit and/or counseling patient: Coding Level of Care Code 46800 SUB INP/OBS CARE 2/35MIN Diagnoses Abdominal pain R10.9 HTN (hypertension) I10 Hypertension type: unspecified Anxiety F41.9 (1) HTN (hypertension) Hypertension type: unspecified Qualified Code(s): I10 - Essential (primary) hypertension
[2022-08-23] MEDS: lisinopril 10 MG TAB PO SCH (13:44)
--- NOTE | 2022-08-23 14:03 | Electrocardiogram Report ---
Test Reason : Blood Pressure : / mmHG Vent. Rate : 072 BPM Atrial Rate : 072 BPM P-R Int : 186 ms QRS Dur : 078 ms QT Int : 380 ms P-R-T Axes : 063 006 056 degrees QTc Int : 416 ms Normal sinus rhythm with sinus arrhythmia Normal ECG When compared with ECG of 15-OCT-2020 05:09, No significant change was found Confirmed by Avinash Benson ([id number]) on 08/23/2022 2:03:43 PM Referred By: REFERRED SELF Confirmed By:Avinash Benson
[2022-08-23] MEDS: clonazePAM 0.5 MG TAB PO SCH (20:25)
--- NOTE | 2022-08-23 23:31 | Billing Data ---
Date of Service August 23, 2022 Coding Level of Care Code 01292 INT INP/OBS CARE
[2022-08-24] MEDS: metroNIDAZOLE 500 MG/100 ML BAG IV SCH ×2 (04:08→12:54)
[2022-08-24 04:58] VITALS: O2SAT 92
[2022-08-24] MEDS: cefTRIAXone SODIUM 2,000 MG in DEXTROSE 5% 50 ML IV SCH (05:10)
[2022-08-24 07:55] VITALS: TEMP 97.7
[2022-08-24] MEDS: lisinopril 10 MG TAB PO SCH (08:20)
--- NOTE | 2022-08-24 09:50 | Surgery Progress Note ---
Date of Service August 24, 2022 Assessment & Plan (1) Colitis: Plan: Infectious vs Ischemic with ? microperforation afebrile, vss completely asymptomatic abdomen completely soft and nontender Plan: No surgical intervention required at this time Okay to advance to low fiber diet. Would recommend low fiber diet for 1-2 weeks GI follow-up recommended Our services signing off please call with questions/concerns Discussed with DR. Medellin who agrees with above. Admission and Anticipated Discharge Date Admission Date: August 22, 2022 Subjective no abdominal pain no n,v tolerating clear liquids having small bowel movements ready to go home Physical Exam Constitutional: WD/WN, vitals as above no acute distress and not ill appearing Gastrointestinal (Abdomen): Inspection/Auscultation: abdomen normal to inspection and + hypoactive bowel sounds; abdomen not distended and + abnormal bowel sounds Percussion/Palpation: abdomen soft; abdomen nontender, no guarding and abdomen not rigid Skin: no rashes, warm and dry Psychiatric: A+Ox3, euthymic affect Results & Data ([facility]) Vital Signs (Past 12 Hours) Vital Signs Temp Pulse Pulse Resp BP Pulse Ox O2 Del Method 08/24/22 07:54 36.5 C 80 18 111/71 92 Room Air 08/24/22 07:25 72 08/24/22 04:00 36.7 C 74 18 106/61 92 Room Air 08/23/22 22:02 83 08/23/22 22:00 36.6 C 76 22 141/67 H 94 Room Air
[2022-08-24 11:04] VITALS: BP 121/71
[2022-08-24 14:55] VITALS: PULSE 80
--- NOTE | 2022-08-24 15:00 | Discharge Summary ---
Date of Service August 24, 2022 Admission HPI Per Admitting Provider This is an 82-year-old male with a history of hypertension, carotid artery stenosis, prostate cancer s/p radiation currently on hormonal therapy who presented to [facility] for evaluation of abdominal pain. Patient states that he was otherwise in his normal health up until this morning, when he woke up with a sharp, constant abdominal pain at the junction of his right upper/right lower quadrants. He said that while it was notable, he was able to participate in his activities of daily living. About 4 to 5 hours later, he noticed it was still there, so he decided to call his family doctor. His family doctor did recommend that he go into the ER for further evaluation. Thankfully to me, he denies any fever, chills, sweats. He denies worsening of his abdominal pain since this morning. He has been able to eat and drink without difficulty. He does state that he has a longstanding history of "a lot of gas "after and before eating, which is not changed at all lately. He does have a history of umbilical hernia surgery. In the ED, patient was found to be hemodynamically stable with blood pressure 175/80 with heart rate 90, afebrile at 36.4. Admission labs notable for WBC 7.1, hemoglobin 14, BUN 22/creatinine 1.29. CT of the abdomen and pelvis demonstrated "trace stranding along the inferior right hepatic lobe and adjacent to the hepatic flexure of the colon. This may reflect nonspecific mild inflammation. A few apparent locules of extraluminal gas are likely within decompressed colon. A contained perforation is considered less likely." He was given NSS, cefoxitin, and metronidazole. Principal Diagnosis 1. Right-sided colitis Discharge Exam GENERAL: 82 yo Well-developed, well-nourished WM. NAD. LUNGS: Clear to auscultation bilaterally. CARDIOVASCULAR: Regular rate and rhythm. ABDOMEN: Soft, non-tender and non-distended. No palpable masses. Bowel sounds normoactive x 4 quad. Discharge Data Allergies Allergy/AdvReac Type Severity Reaction Status Date / Time Penicillins Allergy Intermediate BODY RASH Verified 08/22/22 19:34 Consultations 08/22/22 19:35 ED Decision to Admit Stat 08/22/22 21:56 Consult General Surgery Routine Ordered Studies Abdomen/Pelvis CT 08/22/22 17:24 CT OF THE ABDOMEN AND PELVIS WITH CONTRAST CLINICAL HISTORY: Right lower quadrant abdominal pain. COMPARISON STUDY: Renal ultrasound April 07, 2020. Treatment planning CT July 18, 2021. TECHNIQUE: Following IV administration of 83 mL of Optiray, axial images of the abdomen and pelvis were obtained from the lung bases to the proximal femurs. Images were reviewed in the axial, sagittal, and coronal planes. IV contrast was administered without complication. Automated exposure control was utilized for the study. A dose lowering technique was utilized adhering to the principles of ALARA. CT DOSE: 408.11 mGycm FINDINGS: A small hiatal hernia is present. Liver, spleen, adrenal glands, right kidney and pancreas are normal. There is a 1.6 cm left renal cyst. There is no biliary or pancreatic ductal dilatation. There are fiducial markers within the prostate. Mild bladder wall thickening is noted. There are no urinary calculi. No hydronephrosis. There is no evidence for a bowel obstruction. The appendix is normal. A moderate amount of stool throughout the colon and rectum is noted. There is trace stranding along the inferior right hepatic lobe adjacent to the hepatic flexure of the colon. A few apparent locules of extraluminal gas are likely within decompressed loop of colon. No definite evidence for perforation. There is no lymphadenopathy. Extensive plaque of the abdominal aorta is noted. There is no aneurysm within the abdomen or pelvis. There are no suspicious osseous lesions. No lymphadenopathy. IMPRESSION: 1. No bowel obstruction. Normal appendix. Moderate stool throughout the colon and rectum. 2. Trace stranding along the inferior right hepatic lobe and adjacent to the hepatic flexure of the colon. This may reflect nonspecific mild inflammation. A few apparent locules of extraluminal gas are likely within decompressed colon. A contained perforation is considered less likely. If indicated, short-term follow-up CT of the abdomen could be obtained. 3. Mild bladder wall thickening. No hydronephrosis. No urinary calculi. ACT 112: Negative or not required by law. Electronically signed by: Hector Albrecht M.D. 08/22/2022 6:24 PM Hospital Course (1) Abdominal pain: This is an 82-year-old male with a history of hypertension, carotid artery stenosis, prostate cancer s/p radiation therapy on hormonal treatment, prior umbilical hernia repair who presented to [facility] for evaluation of R-sided abdominal pain, subsequently found to have evidence of mild colitis at the hepatic flexure and suspected micro perforartion with small amounts of extraluminal free air on CT-A/P. His presentation is concerning for possible microperforation. R-sided Abdominal Pain, Acute Mild Colitis with possible micro perforation - Presented to the ED with several hours of junctional RUQ/RLQ sharp and constant abdominal pain at the recommendation of PCP - CT are concerning for contained microperforation. - Consult General Surgery: ED provider spoken with on-call surgeon, no immediate interventions required at time of admission - ABX: Ceftriaxone + Flagyl - Seen today by Dr. Medellin, no plans for surgical intervention as he feels perforation is unlikely - Clinically, abd pain has resolved, pt is not nauseated, no vomiting, HD stable, afebrile - Advanced to clear liquids on 08/23, he tolerated well, advanced to low residue on 08/24, also tolerated - Believe he would benefit to see GI as outpatient. Uncertain etiology of colitis, ?ischemic, infectious, inflammatory - Will transition to course of oral abx for the next 8 days (for total duration of 10 days) of Cipro and Flagyl (2) HTN (hypertension): HTN chronic and stable - Lisinopril held until procedural plan becomes more clear - Resumed today 08/23 (3) Anxiety: Anxiety chronic and stable - Continue home Klonopin Plan Patient is medically and hemodynamically stable for discharge home today. Follow up with GI to be arranged by nurse navigator. Advised PCP follow up. Above plan of care has been d/w Dr. Palmer who is in agreement with aforementioned. Total Time Total Time Spent Total Time Spent (In Minutes): >30 minutes Discharge Plan Discharge Items Patient Disposition: Home - Self-Care Reason For Visit: ABDOMINAL PAIN, POSSIBLE PERF Discharge Diagnosis: abdominal pain, colitis Activity: Resume your previous activity Non-emergency contact: Primary Care Provider and Clinical Science Consultant Call non-emergency contact if: you have any medication questions and your symptoms worsen Follow-up/Referrals: Ovidio Vora DO [Physician] - Robina Khan MD [Primary Care Provider] - Diet: Low Fiber Addtl Attending Provider Instructions: You were hospitalized due to abdominal pain which after performing a CT scan was found to be due to colitis or inflammation in the right side of your colon. It is uncertain what was causing this inflammation, it could be due to an infection which is why you were treated in the hospital with antibiotics. You were seen by general surgery due to concern for a possible hole in the colon, however, it was felt that you did not have a hole and that there was no need for surgery. You will be transitioned to oral antibiotics to take as follows: Cipro 500mg, take one tablet twice a day until gone, and Flagyl 500mg, take one tablet three times a day until gone. Because you have been having intermittent issues with your stomach over the years, it would beneficial for you to see a reconciling clerk. You are being referred to a gastroenterology group to follow up with. You will be contacted with the date and time of your appointment. I would recommend for now following a low fiber diet and then over the next few days advancing back to a regular diet. You should follow up with your family doctor within 1 week of discharge. If you have questions after you are discharged, you may contact the nonemergency number listed on your discharge paperwork. In the event of a medical emergency, call 911. Pending Studies at Discharge: No Stand-Alone Forms: [facility], Smoking Cessation Medications and DC Order Prescriptions: New ciprofloxacin HCl [Cipro] 500 mg tablet 500 mg PO BID Qty: 16 0RF metronidazole 500 mg tablet 500 mg PO TID Qty: 25 0RF Continued cholecalciferol (vitamin D3) 50 mcg (2,000 unit) capsule 50 mcg PO .WITH SUPPER clonazepam 0.5 mg tablet 0.5 mg PO HS Qty: 90 0RF Rx Instructions: PDMP-Last filed on 04/25/2021 # 90/0 loratadine 10 mg capsule 10 mg PO QAM multivitamin [Daily Multi-Vitamin] tablet 1 tab PO .WITH SUPPER Caltrate + D3 Plus Minerals 300 mg-800 unit -25 mg-0.5 mg tablet 1 tab PO .WITH SUPPER lisinopril 10 mg tablet 10 mg PO QAM leuprolide (3 month) 22.5 mg syringe 22.5 mg subcut .EVERY 3 MONTHS Rx Instructions: C61. Coming on 06/19/22 ibuprofen 200 mg Tablet 200 mg PO HS Rx Instructions: take with food Discharge Orders: Discharge Order (Routine); Ordered 08/24/22 Ordered By: Daija Tom Admission Data Admit Date/Time: 08/22/22 20:19 Attending Provider: Sukhjinder Palmer Admit Provider: Jonnathan Gonzalez Primary Care Provider: Robina Khan Other Providers: Corey Abreu ; Isaura Diana Coding Level of Care Code HOSP INP/OBS DISCH >30 MIN Diagnoses Abdominal pain R10.9 HTN (hypertension) I10 Hypertension type: unspecified Anxiety F41.9
== END 2022-08-24 15:24 | disposition home or self-care (01) | DRG 391 ==
LOC: ED 13:53 → SUATTDRO 20:19 → EDINP 20:19 → 2W 08-23 16:52